=== PATIENT | female | born 2000 | race Hispanic/Latino ===

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

== ENCOUNTER → 2023-04-01 | Emergency (ER) | payer SELFPAY ==
--- OUTSIDE RECORDS SUMMARY | 2023-04-01 12:27 | XMS REPORT | Continuity of Care Document ---
Author Name Unknown Address [address] [place] [address] [facility] thconnect Address [address] [place] [address] Care Team Providers Care Comber Tender Name Role Phone BROOKE VIRAMONTES Primary Care Physician Unava ilBROOKE Elizabeth Attending Clinician ILAN Moore Attending Clinician Unavail able [facility], [facility] Attending Clinician Unava Ilan Parrish Attending Clinician + MÓNICA KAMARA Attending Clinician Unavailable MÓNICA KAMARA Attending Clinician Unavailable Mónica Kamara MD Attending Clinician [phone] KANWAL PANG Attending Clinician Unavailable Abril Contreras MD Attending Clinician [phone] Alphonso Tinoco MD Attending Clinician [phone] Trey Funk MD Attending Clinician [phone] Brooke Viramontes CNM Attending Clinician [phone] Doctor Unassigned, Burr Attending Clinician U kim West RN, Ambreen Perea Attending Clinician UnavailJOHN Greenwood Attending Clinician Unav ailadela Ultrasound, Brianahal Attending Clinician Unavailgita Cowan MD, John Son Attending Clinician + Lab, [facility] Attending Clinician Unavailable Brad Parson MD Attending Clinician [phone] BRAD PARSON Attending Clinician Belia MUIR, Parvin Vogel Attending Clinician [phone] PARVIN DUENAS Attending Clinician Unavailab CHIP Barboza Attending Clinician Chip Juarez MD Attending Clinician [phone] Amaury Crump DO Attending Clinician [phone] STEVE GRADY Attending Clinician Unavailraman Grady STERILE PROCESS COORDINATOR, Steve Perez Attending Clinician [phone] Caleb Ajith PECK Attending Clinician + Provider, [facility] Temp Attending Clinician Nahomy vailable LORRIE LUJAN Attending Clinician Sulma Cross, Yqd-Vdqqn-Mb/High Attending Clinician Unav ailable Tracey Lorrie PECK Attending Clinician [phone] MÓNICA KAMARA Admitting Clinician Unavailable Mónica Kamara MD Admitting Clinician [phone] BRAD PARSON Admitting Clinician CHIP Juarez Admitting Clinician Chip Juarez MD Admitting Clinician [phone] Payers Payer Name Policy Type Policy Number Effective Date Expirati on Date Source [place] [employer] [id number] 2022 00:00:00 [place] [id number] 2020 00:00:00 Problems Condition Name Condition Details Condition Category Status Onset Date Resolution Date Last Treatment Date Treating Clinician Comments Source 39 weeks gestation of 39 weeks gestation of Disease Active 2022-02 00:00: 00 [facility] Insufficie nt care Insufficie nt care Disease Active 2022-02 00:00: 00 [facility] Declines flu vaccine Declines flu vaccine Disease Active 2022-02 00:00: 00 [facility] Tubal ligation status Tubal ligation status Disease Active 2023-0 8-15 00:00: 00 [facility] Pain on movement of skeletal muscle Pain on movement of skeletal muscle Disease Active 0 8-05 00:00: 00 [facility] Pain of round ligament during Pain of round ligament during Disease Active 0 6-23 00:00: 00 [facility] Headache in Headache in Disease Active 0 6-23 00:00: 00 [facility] Overweight (BMI 25.0-29.9) Overweight (BMI 25.0-29.9) Disease Active 0 5-24 00:00: 00 [facility] care and examinatio n of lactating mother care and examinatio n of lactating mother Disease Active 0 2-16 00:00: 00 [facility] (spontaneo us vaginal delivery) (spontaneo us vaginal delivery) Disease Active 0 1-27 00:00: 00 [facility] Single live Single live Disease Active 0 1-27 00:00: 00 [facility] Rubella non-immune status, antepartum Rubella non-immune status, antepartum Disease Active 0 1-27 00:00: 00 [facility] Maternal varicella, non-immune Maternal varicella, non-immune Disease Active 0 1-27 00:00: 00 [facility] 38 weeks gestation of 38 weeks gestation of Disease Active 0 1-25 00:00: 00 [facility] COVID COVID Disease Active 0 1-20 00:00: 00 [facility] High risk teen in third trimester High risk teen in third trimester Disease Active 0 1-20 00:00: 00 [facility] Obesity (BMI 30-39.9) Obesity (BMI 30-39.9) Disease Active 0 1-20 00:00: 00 [facility] Obesity affecting in third trimester Obesity affecting in third trimester Disease Active 0 1-03 00:00: 00 [facility] Anemia of mother in , antepartum Anemia of mother in , antepartum Disease Active 2020-02 00:00: 00 [facility] Anemia of mother in , antepartum Anemia of mother in , antepartum Disease Active 2020-02 00:00: 00 [facility] Multiparit y Multiparit y Disease Active 8-18 00:00: 00 [facility] High-risk in first trimester High-risk in first trimester Disease Active 7 00:00: 00 [facility] H/O pre-eclamp aaron in prior , currently , second trimester H/O pre-eclamp aaron in prior , currently , second trimester Disease Active 09-07 00:00: 00 [facility] Palpable mass of breast in patient Palpable mass of breast in patient Disease Active 09-07 00:00: 00 [facility] Supervisio n of high-risk with insufficie nt care in third trimester Supervisio n of high-risk with insufficie nt care in third trimester Disease Active 2017-02 00:00: 00 [facility] High risk teen in first trimester High risk teen in first trimester Problem Active [facility] Allergies, Adverse Reactions, Alerts Allergy Name Allergy Type Status Severity Reaction(s) Onset Date Inactive Date Treating Clinician Comments Source NO KNOWN ALLERGIE S Drug Class Active [facility] Social History Social Habit Start Date Stop Date Quantity Comments Source ASSERTION 2022-04-25 00:00:00 [facility] Alcohol intake 2023-01-21 00:00:00 2023-01-21 00:00:00 Current non-drinker of alcohol (finding) [facility] Tobacco use and exposure 2023-01-13 00:00:00 2023-01-13 00:00:00 Smokeless tobacco non-user [facility] Exposure to SARS-CoV-2 (event) 2022-07-07 00:00:00 2022-07-17 13:35:00 Not sure [facility] History of Social function 2022-07-17 00:00:00 2022-07-17 00:00:00 [facility] Sex Assigned At 2001 00:00:00 2000 00:00:00 [facility] Smoking Status Start Date Stop Date Source Never smoked tobacco [facility] Medications Ordered Medication Name Filled Medication Name Start Date Stop Date Current Medication? Ordering Clinician Indication Dosage Frequency Signature (SIG) Comments Components Source simethicone (GAS RELIEF (SIMETHICON E)) chewable tablet 160 mg 2022-02 15:00: 00 Yes 160mg 160 mg, Oral, PC+HS, First dose (after last modificati on) on Sat01/16/23 at 0900, Until Discontinu ed, Routine [facility] gabapentin (NEURONTIN) capsule 100 mg 2022-02 07:00: 00 Yes 100mg 100 mg, Oral, TID, First dose on Sat01/16/23 at 0100, Until Discontinu ed, Routine [facility] polyethylen e glycol 3350 powder 17 g 2022-02 07:00: 00 Yes 17g 17 g, Oral, DAILY, First dose on Sat01/16/23 at 0100, Until Discontinu ed, Routine [facility] [id number] fum-folic () 27 mg iron- 1 mg folic tablet 2022-02 00:00: 00 Yes [id number] 1{tbl} Take 1 tablet by mouth in the morning. [facility] docusate 100 mg capsule 2022-02 00:00: 00 Yes [id number] 200mg Take 2 capsules by mouth once daily as needed for Constipati on. [facility] ferrous sulfate 325 mg (65 mg iron) tablet 2022-02 00:00: 00 Yes [id number] 325mg Take 1 tablet by mouth every other day. [facility] ibuprofen 600 mg tablet 2022-02 00:00: 00 Yes [id number] 600mg Take 1 tablet by mouth every 6 (six) hours as needed (Pain). Take with food or milk. [facility] HYDROcodone -acetaminop hen 5-325 mg tablet 2022-02 00:00: 00 Yes [id number] 1{tbl} Take 1 tablet by mouth every 6 (six) hours as needed (Pain scale above 4). Do not exceed 3 grams of acetaminop hen in 24 hours. Indication s: acute pain [facility] gabapentin 100 mg capsule 2022-02 00:00: 00 Yes [id number] 100mg Take 1 capsule by mouth in the morning and 1 capsule at noon and 1 capsule in the evening. [facility] [id number] fum-folic () 27 mg iron- 1 mg folic tablet 2022-02 00:00: 00 Yes [id number] 1{tbl} Take 1 tablet by mouth in the morning. [facility] docusate 100 mg capsule 2022-02 00:00: 00 Yes [id number] 200mg Take 2 capsules by mouth once daily as needed for Constipati on. [facility] ferrous sulfate 325 mg (65 mg iron) tablet 2022-02 00:00: 00 Yes [id number] 325mg Take 1 tablet by mouth every other day. [facility] ibuprofen 600 mg tablet 2022-02 00:00: 00 Yes [id number] 600mg Take 1 tablet by mouth every 6 (six) hours as needed (Pain). Take with food or milk. [facility] HYDROcodone -acetaminop hen 5-325 mg tablet 2022-02 00:00: 00 Yes [id number] 1{tbl} Take 1 tablet by mouth every 6 (six) hours as needed (Pain scale above 4). Do not exceed 3 grams of acetaminop hen in 24 hours. Indication s: acute pain [facility] gabapentin 100 mg capsule 2022-02 00:00: 00 Yes [id number] 100mg Take 1 capsule by mouth in the morning and 1 capsule at noon and 1 capsule in the evening. [facility] foLIC acid (FOLATE) tablet 1 mg 2022-02 15:00: 00 Yes 1mg 1 mg, Oral, DAILY, First dose on Sat01/15/23 at 0900, Until Discontinu ed, Routine [facility] ferrous sulfate tablet 325 mg 2022-02 15:00: 00 Yes 325mg 325 mg, Oral, DAILY, First dose on Sat01/15/23 at 0900, Until Discontinu ed, Routine [facility] foLIC acid (FOLATE) tablet 1 mg 2022-02 15:00: 00 Yes 1mg 1 mg, Oral, DAILY, First dose on Sat01/15/23 at 0900, Until Discontinu ed, Routine [facility] ferrous sulfate tablet 325 mg 2022-02 15:00: 00 Yes 325mg 325 mg, Oral, DAILY, First dose on Sat01/15/23 at 0900, Until Discontinu ed, Routine [facility] rho(D) immune globulin (RHOGAM) syringe 300 mcg 2022-02 22:21: 24 Yes 300ug 300 mcg, Intramuscu lar, ONCE, For 1 dose, Conditiona l, Routine [facility] rho(D) immune globulin (RHOGAM) syringe 300 mcg 2022-02 22:21: 24 Yes 300ug 300 mcg, Intramuscu lar, ONCE, For 1 dose, Conditiona l, Routine [facility] HYDROcodone -acetaminop hen (NORCO 5) 5-325 mg tablet 2 tablet 2022-02 22:21: 12 Yes 2{tbl} 2 tablet, Oral, Q6HPRN, Starting on Sat01/14/23 at 1621, Until Discontinu ed, Routine, Pain (scale 7-10), Alternate with Ibuprofen [facility] HYDROcodone -acetaminop hen (NORCO 5) 5-325 mg tablet 1 tablet 2022-02 22:21: 12 Yes 1{tbl} 1 tablet, Oral, Q6HPRN, Starting on Sat01/14/23 at 1621, Until Discontinu ed, Routine, Pain (scale 4-6), Alternate with Ibuprofen [facility] ibuprofen (IBU) tablet 600 mg 2022-02 22:21: 12 Yes 600mg 600 mg, Oral, Q6HPRN, Starting on Sat01/14/23 at 1621, Until Discontinu ed, Routine, Pain (scale 1-3) [facility] diphenhydrA MINE (BENADRYL) injection 25 mg 2022-02 22:21: 12 Yes 25mg 25 mg, Slow IV Push, Q6HPRN, Starting on Sat01/14/23 at 1621, Until Discontinu ed, Routine, Itching [facility] diphenhydrA MINE (BENADRYL) tablet 25 mg 2022-02 22:21: 12 Yes 25mg 25 mg, Oral, Q6HPRN, Starting on Sat01/14/23 at 1621, Until Discontinu ed, Routine, Sleep, Itching [facility] ondansetron (ZOFRAN (PF)) injection 4 mg 2022-02 22:21: 12 Yes 4mg 4 mg, Slow IV Push, Q8HPRN, Starting on Sat01/14/23 at 1621, Until Discontinu ed, Routine, Nausea and Vomiting (N/V) [facility] bisacodyL (DULCOLAX) suppository 10 mg 2022-02 22:21: 12 Yes 10mg 10 mg, Rectal, QDAILYPRN, Starting on Sat01/14/23 at 1621, Until Discontinu ed, Routine, Constipati on [facility] simethicone (GAS RELIEF (SIMETHICON E)) chewable tablet 160 mg 2022-02 22:21: 12 Yes 160mg 160 mg, Oral, PC+HSPRN, Starting on Sat01/14/23 at 1621, Until Discontinu ed, Routine, Gas [facility] docusate (COLACE) capsule 200 mg 2022-02 22:21: 12 Yes 200mg 200 mg, Oral, QDAILYPRN, Starting on Sat01/14/23 at 1621, Until Discontinu ed, Routine, Constipati on [facility] magnesium hydroxide (MILK OF MAGNESIA) 400 mg/5 mL suspension 30 mL 2022-02 22:21: 12 Yes 30mL 30 mL, Oral, QDAILYPRN, Starting on Sat01/14/23 at 1621, Until Discontinu ed, Routine, Constipati on [facility] HYDROcodone -acetaminop hen (NORCO 5) 5-325 mg tablet 2 tablet 2022-02 22:21: 12 Yes 2{tbl} 2 tablet, Oral, Q6HPRN, Starting on Sat01/14/23 at 1621, Until Discontinu ed, Routine, Pain (scale 7-10), Alternate with Ibuprofen [facility] HYDROcodone -acetaminop hen (NORCO 5) 5-325 mg tablet 1 tablet 2022-02 22:21: 12 Yes 1{tbl} 1 tablet, Oral, Q6HPRN, Starting on Sat01/14/23 at 1621, Until Discontinu ed, Routine, Pain (scale 4-6), Alternate with Ibuprofen [facility] ibuprofen (IBU) tablet 600 mg 2022-02 22:21: 12 Yes 600mg 600 mg, Oral, Q6HPRN, Starting on Sat01/14/23 at 1621, Until Discontinu ed, Routine, Pain (scale 1-3) [facility] diphenhydrA MINE (BENADRYL) injection 25 mg 2022-02 22:21: 12 Yes 25mg 25 mg, Slow IV Push, Q6HPRN, Starting on Sat01/14/23 at 1621, Until Discontinu ed, Routine, Itching [facility] diphenhydrA MINE (BENADRYL) tablet 25 mg 2022-02 22:21: 12 Yes 25mg 25 mg, Oral, Q6HPRN, Starting on Sat01/14/23 at 1621, Until Discontinu ed, Routine, Sleep, Itching [facility] ondansetron (ZOFRAN (PF)) injection 4 mg 2022-02 22:21: 12 Yes 4mg 4 mg, Slow IV Push, Q8HPRN, Starting on Sat01/14/23 at 1621, Until Discontinu ed, Routine, Nausea and Vomiting (N/V) [facility] bisacodyL (DULCOLAX) suppository 10 mg 2022-02 22:21: 12 Yes 10mg 10 mg, Rectal, QDAILYPRN, Starting on Sat01/14/23 at 1621, Until Discontinu ed, Routine, Constipati on [facility] docusate (COLACE) capsule 200 mg 2022-02 22:21: 12 Yes 200mg 200 mg, Oral, QDAILYPRN, Starting on Sat01/14/23 at 1621, Until Discontinu ed, Routine, Constipati on [facility] magnesium hydroxide (MILK OF MAGNESIA) 400 mg/5 mL suspension 30 mL 2022-02 22:21: 12 Yes 30mL 30 mL, Oral, QDAILYPRN, Starting on Sat01/14/23 at 1621, Until Discontinu ed, Routine, Constipati on [facility] simethicone (GAS RELIEF (SIMETHICON E)) chewable tablet 160 mg 2022-02 22:21: 12 01-16 06:47 :52 No 160mg 160 mg, Oral, PC+HSPRN, Starting on Sat01/14/23 at 1621, Until Sat01/16/23 at 0047, Routine, Gas [facility] lactated ringers IV infusion 1,000 mL 2022-02 22:21: 12 01-14 22:29 :00 No 1000mL at 125 mL/hr, 1,000 mL, IV Infusion, PRN, 1 dose, Starting on Sat01/14/23 at 1621, Until Sat01/14/23 at 1629, Routine [facility] diphenhydrA MINE (BENADRYL) injection 25 mg 2022-02 20:59: 34 01-16 00:55 :37 Yes 25mg 25 mg, Slow IV Push, Q4HPRN, Starting on Sat01/14/23 at 1459, Until Sat01/15/23 at 1855, Routine, Itching [facility] naloxone (NARCAN) injection 0.4 mg 2022-02 20:59: 00 01-17 00:14 :19 Yes .4mg 0.4 mg, Slow IV Push, PRN - SEE INSTRUCTIO NS, Starting on Sat01/14/23 at 1459, Until Sat01/16/23 at 1814, Routine, Analgesia Recovery [facility] naloxone (NARCAN) injection 0.4 mg 2022-02 20:59: 00 01-17 00:14 :19 Yes .4mg 0.4 mg, Slow IV Push, PRN - SEE INSTRUCTIO NS, Starting on Sat01/14/23 at 1459, Until Sat01/16/23 at 1814, Routine, Analgesia Recovery [facility] methylene blue injection 2022-02 20:48: 00 Yes PRN, Starting on Sat01/14/23 at 1448, Until Discontinu ed, Routine, Intra-op [facility] methylene blue injection 2022-02 20:48: 00 Yes PRN, Starting on Sat01/14/23 at 1448, Until Discontinu ed, Routine, Intra-op [facility] morpHINE PF (DURAMORPH- PF) injection 2022-02 19:56: 00 01-14 23:21 :14 No Epidural, ONCE INTRA PROCEDURE, Starting on Sat01/14/23 at 1356, Until Discontinu ed, Routine, Intra-op [facility] LR 1000 mL + oxytocin 20 units IV Solution 2022-02 19:45: 00 01-14 23:21 :14 No IV Infusion, CONTINUOUS PRN, Starting on Sat01/14/23 at 1345, Until Discontinu ed, NEERAJ, Intra-op [facility] FENTanyl PF (SUBLIMAZE (PF)) injection 2022-02 19:30: 00 01-14 23:21 :14 No Epidural, ONCE INTRA PROCEDURE, Starting on Sat01/14/23 at 1330, Until Discontinu ed, Routine, Intra-op [facility] ondansetron (ZOFRAN (PF)) injection 2022-02 19:29: 00 01-14 23:21 :14 No Slow IV Push, ONCE INTRA PROCEDURE, Starting on Sat01/14/23 at 1329, Until Discontinu ed, Routine, Intra-op [facility] lidocaine-e pinephrine (XYLOCAINE W/EPINEPHRI NE) 2 %-1:200,000 injection 2022-02 19:28: 00 01-14 23:21 :14 No Epidural, ONCE INTRA PROCEDURE, Starting on Sat01/14/23 at 1328, Until Discontinu ed, Routine, Intra-op [facility] PHENYLephri ne 1000 mcg/10 mL in 0.9% NaCl syringe 2022-02 19:25: 00 01-14 23:21 :14 No Slow IV Push, CONTINUOUS PRN, Starting on Sat01/14/23 at 1325, Until Discontinu ed, Routine, [facility] 20[facility]-02 19:18: 00 01-14 23:21 :14 No IV Infusion, CONTINUOUS PRN, Starting on Sat01/14/23 at 1318, Until Discontinu ed, Routine, Intra-op [facility] lactated ringers IV infusion 500 mL 2022-02 19:00: 00 01-14 19:11 :00 No 500mL at 999 mL/hr, 500 mL, Intravenou s, ONCE, 1 dose, On Sat01/14/23 at 1300, Routine [facility] ceFAZolin (ANCEF) 2,000 mg in NaCl 0.9% (NS) 100 mL MINI-BAG 2022-02 18:02: 25 01-14 22:21 :22 No 2000mg 2,000 mg, IV Piggyback, O.R. HOLDING ONCE, Starting on Sat01/14/23 at 1202, Until Sat01/14/23 at 1621, Administer over 30 Minutes, 100 mL
Reas on for Anti-Infec tive: Surgical Prophylaxi s
Surgi anthony Prophylaxi s: LENS EDGE GRINDER MACHINE
Duration of therapy: within 24 hours of surgery [facility] ondansetron (ZOFRAN (PF)) injection 4 mg 2022-02 15:45: 00 01-14 15:17 :00 No 4mg 4 mg, Slow IV Push, ONCE, On Sat01/14/23 at 0945, For 1 dose
Do ses of ondansetro n 16 mg and above need to be administer ed via IV piggyback. For Dose >=24mg ECG monitoring is advisable.
[facility] terbutaline (BRETHINE) injection 0.25 mg 2022-02 13:45: 00 01-14 12:54 :00 No .25mg 0.25 mg, Intravenou s, ONCE, 1 dose, On Sat01/14/23 at 0745, Routine [facility] amnioinfusi on IV infusion via GRAVITY 0.9 NaCL 1,000 mL 2022-02 12:45: 00 01-14 12:36 :00 No 1000mL at 750 mL/hr, Intrauteri ne, ONCE, 1 dose, On Sat01/14/23 at 0645, NEERAJ
In fuse via gravity 750 ml over 1 hour.&nbsp ; Once 750 mL has been infused, the infusion may be discontinu ed or decreased to 100 mL/hr until the liter is complete.& nbsp;&nbsp ;Notify Certified Registered Dental Assistant if uterine resting tone exceeds 25 mmHg at any time during the amnioinfus ion. Obst etrics (ARI) Aminoinfus ion Orders
[facility] lactated ringers IV infusion 500 mL 2022-02 11:15: 00 01-14 11:13 :34 No 500mL at 999 mL/hr, 500 mL, IV Infusion, ONCE, 1 dose, On Sat01/14/23 at 0515, Routine [facility] ropivacaine 0.2 % (NAROPIN (PF)) epidural infusion 2022-02 11:03: 00 01-14 23:21 :14 No Epidural, CONTINUOUS PRN, Starting on Sat01/14/23 at 0503, Until Discontinu ed, Routine, Intra-op [facility] lidocaine-e pinephrine (XYLOCAINE W/EPINEPHRI NE) 1.5 %-1:200,000 injection 2022-02 11:00: 00 01-14 23:21 :14 No Intraderma l, ONCE INTRA PROCEDURE, Starting on Sat01/14/23 at 0500, Until Discontinu ed, Routine, Intra-op [facility] morpHINE (4 mg/mL) injection 4 mg 2022-02 09:30: 00 01-14 09:15 :00 No 4mg 4 mg, Slow IV Push, ONCE, 1 dose, On Sat01/14/23 at 0330, Routine [facility] oxytocin (PITOCIN) 30 units in NS 500 mL IV infusion 2022-02 05:01: 12 01-14 22:21 :22 No 2mU/min at 2-40 mL/hr, IV Infusion, TITRATE, Starting on Sat01/13/23 at 2301, Until Sat01/14/23 at 1621, NEERAJ [facility] sodium citrate-cit nestor acid (BICITRA) 500-334 mg/5 mL solution 30 mL 2022-02 05:00: 02 01-14 19:11 :00 No 30mL 30 mL, Oral, PRE-PROCED URE ONCE, 1 dose, Starting on Sat01/13/23 at 2300, Until Discontinu ed, Routine, Surgery/Pr ocedure [facility] D5W-LR IV infusion 1,000 mL 2022-02 05:00: 02 01-14 22:21 :22 No 1000mL at 1-125 mL/hr, IV Infusion, TITRATE, Starting on Sat01/13/23 at 2300, Until Sat01/14/23 at 1621, Routine [facility] fluconazole (DIFLUCAN) 150 mg tablet 10-26 00:00: 00 Yes [id number] Take 1 tablet today and 2nd tablet in 7 days [facility] fluconazole (DIFLUCAN) 150 mg tablet 10-26 00:00: 00 12-05 00:00 :00 No [id number] Take 1 tablet today and 2nd tablet in 7 days [facility] fluconazole (DIFLUCAN) 150 mg tablet 10-26 00:00: 00 12-05 00:00 :00 No [id number] Take 1 tablet today and 2nd tablet in 7 days [facility] metroNIDAZO LE 500 mg tablet 10-26 00:00: 00 11-03 04:59 :00 No [id number] 500mg Take 1 tablet by mouth in the morning and 1 tablet in the evening. Do all this for 7 days. [facility] Iron Fum & P-FA-Vit B & C No.9 (INTEGRA PLUS) 125 mg iron- 1 mg Cap 2022-0 8-16 00:00: 00 Yes [id number] 1{capsu le} Take 1 capsule by mouth in the morning. [facility] Iron Fum & P-FA-Vit B & C No.9 (INTEGRA PLUS) 125 mg iron- 1 mg Cap 2022-0 8-16 00:00: 00 Yes [id number] 1{capsu le} Take 1 capsule by mouth in the morning. [facility] Iron Fum & P-FA-Vit B & C No.9 (INTEGRA PLUS) 125 mg iron- 1 mg Cap 2022-0 8-16 00:00: 00 Yes [id number] 1{capsu le} Take 1 capsule by mouth in the morning. [facility] Iron Fum & P-FA-Vit B & C No.9 (INTEGRA PLUS) 125 mg iron- 1 mg Cap 2022-0 8-16 00:00: 00 Yes [id number] 1{capsu le} Take 1 capsule by mouth in the morning. [facility] Iron Fum & P-FA-Vit B & C No.9 (INTEGRA PLUS) 125 mg iron- 1 mg Cap 3-0 8-16 00:00: 00 Yes [id number] 1{capsu le} Take 1 capsule by mouth in the morning. [facility] Iron Fum & P-FA-Vit B & C No.9 (INTEGRA PLUS) 125 mg iron- 1 mg Cap 3-0 8-16 00:00: 00 Yes [id number] 1{capsu le} Take 1 capsule by mouth in the morning. [facility] Iron Fum & P-FA-Vit B & C No.9 (INTEGRA PLUS) 125 mg iron- 1 mg Cap 2023-0 8-16 00:00: 00 Yes [id number] 1{capsu le} Take 1 capsule by mouth in the morning. [facility] Iron Fum & P-FA-Vit B & C No.9 (INTEGRA PLUS) 125 mg iron- 1 mg Cap 3-0 8-16 00:00: 00 Yes [id number] 1{capsu le} Take 1 capsule by mouth in the morning. [facility] Iron Fum & P-FA-Vit B & C No.9 (INTEGRA PLUS) 125 mg iron- 1 mg Cap 3-0 8-16 00:00: 00 Yes [id number] 1{capsu le} Take 1 capsule by mouth in the morning. [facility] Iron Fum & P-FA-Vit B & C No.9 (INTEGRA PLUS) 125 mg iron- 1 mg Cap 3-0 8-16 00:00: 00 01-16 00:00 :00 No [id number] 1{capsu le} Take 1 capsule by mouth in the morning. [facility] cyclobenzap rine 5 mg tablet 2022-0 8-03 00:00: 00 10-05 04:59 :00 No [id number] 5mg Take 1 tablet by mouth 3 (three) times daily as needed for Muscle Spasms for up to 7 days. [facility] fluconazole (DIFLUCAN) 150 mg tablet 2022-0 7-17 00:00: 00 18 04:59 :00 No [id number] 150mg Take 1 tablet by mouth once now for 1 dose. [facility] aspirin 81 mg EC tablet 0 07-17 00:00: 00 Yes [id number] 9100 81mg Take 1 tablet by mouth in the morning. [facility] ech599-vujl fum-folic () 27 mg iron- 1 mg folic tablet 07-17 00:00: 00 Yes [id number] 1{tbl} Take 1 tablet by mouth in the morning. [facility] aspirin 81 mg EC tablet 2022-0 07-17 00:00: 00 Yes [id number] 9100 81mg Take 1 tablet by mouth in the morning. [facility] xaq261-eaci fum-folic () 27 mg iron- 1 mg folic tablet 0 07-17 00:00: 00 Yes [id number] 1{tbl} Take 1 tablet by mouth in the morning. [facility] aspirin 81 mg EC tablet 0 07-17 00:00: 00 Yes [id number] 9100 81mg Take 1 tablet by mouth in the morning. [facility] kls091-tstl fum-folic () 27 mg iron- 1 mg folic tablet 0 07-17 00:00: 00 Yes [id number] 1{tbl} Take 1 tablet by mouth in the morning. [facility] aspirin 81 mg EC tablet 07-17 00:00: 00 Yes [id number] 9100 81mg Take 1 tablet by mouth in the morning. [facility] [id number]-fkpq fum-folic () 27 mg iron- 1 mg folic tablet 07-17 00:00: 00 Yes [id number] 1{tbl} Take 1 tablet by mouth in the morning. [facility] aspirin 81 mg EC tablet 0 07-17 00:00: 00 Yes [id number] 9100 81mg Take 1 tablet by mouth in the morning. [facility] ked640-gvyf fum-folic () 27 mg iron- 1 mg folic tablet 0 07-17 00:00: 00 Yes [id number] 1{tbl} Take 1 tablet by mouth in the morning. [facility] aspirin 81 mg EC tablet 0 07-17 00:00: 00 Yes [id number] 9100 81mg Take 1 tablet by mouth in the morning. [facility] kls173-xseo fum-folic () 27 mg iron- 1 mg folic tablet 0 07-17 00:00: 00 Yes [id number] 1{tbl} Take 1 tablet by mouth in the morning. [facility] aspirin 81 mg EC tablet 2022-0 07-17 00:00: 00 Yes [id number] 9100 81mg Take 1 tablet by mouth in the morning. [facility] ual219-gulw fum-folic () 27 mg iron- 1 mg folic tablet 0 07-17 00:00: 00 Yes [id number] 1{tbl} Take 1 tablet by mouth in the morning. [facility] aspirin 81 mg EC tablet 0 07-17 00:00: 00 Yes [id number] 9100 81mg Take 1 tablet by mouth in the morning. [facility] qca843-iiqp fum-folic () 27 mg iron- 1 mg folic tablet 07-17 00:00: 00 Yes [id number] 1{tbl} Take 1 tablet by mouth in the morning. [facility] aspirin 81 mg EC tablet 07-17 00:00: 00 Yes [id number] 9100 81mg Take 1 tablet by mouth in the morning. [facility] nix029-szrv fum-folic () 27 mg iron- 1 mg folic tablet 07-17 00:00: 00 Yes [id number] 1{tbl} Take 1 tablet by mouth in the morning. [facility] aspirin 81 mg EC tablet 07-17 00:00: 00 Yes [id number] 9100 81mg Take 1 tablet by mouth in the morning. [facility] egb442-xxqa fum-folic () 27 mg iron- 1 mg folic tablet 07-17 00:00: 00 Yes [id number] 1{tbl} Take 1 tablet by mouth in the morning. [facility] aspirin 81 mg EC tablet 0 07-17 00:00: 00 Yes [id number] 9100 81mg Take 1 tablet by mouth in the morning. [facility] eza566-uglv fum-folic () 27 mg iron- 1 mg folic tablet 07-17 00:00: 00 Yes [id number] 1{tbl} Take 1 tablet by mouth in the morning. [facility] aspirin 81 mg EC tablet 2022-0 07-17 00:00: 00 Yes [id number] 9100 81mg Take 1 tablet by mouth in the morning. [facility] [id number]-xoji fum-folic () 27 mg iron- 1 mg folic tablet 07-17 00:00: 00 Yes [id number] 1{tbl} Take 1 tablet by mouth in the morning. [facility] aspirin 81 mg EC tablet 07-17 00:00: 00 Yes [id number] 9100 81mg Take 1 tablet by mouth in the morning. [facility] yhk582-bvqo fum-folic () 27 mg iron- 1 mg folic tablet 07-17 00:00: 00 Yes [id number] 1{tbl} Take 1 tablet by mouth in the morning. [facility] aspirin 81 mg EC tablet 07-17 00:00: 00 Yes [id number] 9100 81mg Take 1 tablet by mouth in the morning. [facility] ckb902-zmfr fum-folic () 27 mg iron- 1 mg folic tablet 07-17 00:00: 00 Yes [id number] 1{tbl} Take 1 tablet by mouth in the morning. [facility] aspirin 81 mg EC tablet 07-17 00:00: 00 Yes [id number] 9100 81mg Take 1 tablet by mouth in the morning. [facility] rth072-qojy fum-folic () 27 mg iron- 1 mg folic tablet 07-17 00:00: 00 Yes [id number] 1{tbl} Take 1 tablet by mouth in the morning. [facility] aspirin 81 mg EC tablet 07-17 00:00: 00 Yes [id number] 9100 81mg Take 1 tablet by mouth in the morning. [facility] ios341-anqm fum-folic () 27 mg iron- 1 mg folic tablet 07-17 00:00: 00 Yes [id number] 1{tbl} Take 1 tablet by mouth in the morning. [facility] aspirin 81 mg EC tablet 2022-0 07-17 00:00: 00 Yes [id number] 9100 81mg Take 1 tablet by mouth in the morning. [facility] gvk041-wssy fum-folic () 27 mg iron- 1 mg folic tablet 07-17 00:00: 00 Yes [id number] 1{tbl} Take 1 tablet by mouth in the morning. [facility] aspirin 81 mg EC tablet 07-17 00:00: 00 Yes [id number] 9100 81mg Take 1 tablet by mouth in the morning. [facility] szf639-gfvt fum-folic () 27 mg iron- 1 mg folic tablet 07-17 00:00: 00 Yes [id number] 1{tbl} Take 1 tablet by mouth in the morning. [facility] aspirin 81 mg EC tablet 07-17 00:00: 00 Yes [id number] 9100 81mg Take 1 tablet by mouth in the morning. [facility] blr232-jtoz fum-folic () 27 mg iron- 1 mg folic tablet 07-17 00:00: 00 Yes [id number] 1{tbl} Take 1 tablet by mouth in the morning. [facility] aspirin 81 mg EC tablet 07-17 00:00: 00 01-16 00:00 :00 No [id number] 9100 81mg Take 1 tablet by mouth in the morning. [facility] mcd483-odoa fum-folic () 27 mg iron- 1 mg folic tablet 07-17 00:00: 00 01-16 00:00 :00 No [id number] 1{tbl} Take 1 tablet by mouth in the morning. [facility] ehy165-ffxx fum-folic () 27 mg iron- 1 mg Tab 03-23 00:00: 00 Yes [id number] 1{tbl} Take 1 tablet by mouth daily. [facility] docusate calcium 240 mg capsule 03-23 00:00: 00 Yes [id number] 240mg Take 1 capsule by mouth once daily as needed for Constipati on. [facility] ferrous sulfate 325 mg (65 mg iron) tablet 03-23 00:00: 00 Yes [id number] 325mg Take 1 tablet by mouth 2 (two) times daily. [facility] ibuprofen 600 mg tablet 03-23 00:00: 00 Yes [id number] 600mg Take 1 tablet by mouth every 6 (six) hours as needed (Pain). Take with food or milk. [facility] tdz564-dbsq fum-folic () 27 mg iron- 1 mg Tab 03-23 00:00: 00 Yes [id number] 1{tbl} Take 1 tablet by mouth daily. [facility] docusate calcium 240 mg capsule 03-23 00:00: 00 Yes [id number] 240mg Take 1 capsule by mouth once daily as needed for Constipati on. [facility] ferrous sulfate 325 mg (65 mg iron) tablet 03-23 00:00: 00 Yes [id number] 325mg Take 1 tablet by mouth 2 (two) times daily. [facility] ibuprofen 600 mg tablet 03-23 00:00: 00 Yes [id number] 600mg Take 1 tablet by mouth every 6 (six) hours as needed (Pain). Take with food or milk. [facility] [id number]-eydt fum-folic () 27 mg iron- 1 mg Tab 03-23 00:00: 00 Yes [id number] 1{tbl} Take 1 tablet by mouth daily. [facility] docusate calcium 240 mg capsule 03-23 00:00: 00 Yes [id number] 240mg Take 1 capsule by mouth once daily as needed for Constipati on. [facility] ferrous sulfate 325 mg (65 mg iron) tablet 03-23 00:00: 00 Yes [id number] 325mg Take 1 tablet by mouth 2 (two) times daily. [facility] ibuprofen 600 mg tablet 03-23 00:00: 00 Yes [id number] 600mg Take 1 tablet by mouth every 6 (six) hours as needed (Pain). Take with food or milk. [facility] jgu108-nhnk fum-folic () 27 mg iron- 1 mg Tab 03-23 00:00: 07-17 00:00 :00 No [id number] 1{tbl} Take 1 tablet by mouth daily. [facility] docusate calcium 240 mg capsule 03-23 00:00: 00 07-17 00:00 :00 No [id number] 240mg Take 1 capsule by mouth once daily as needed for Constipati on. [facility] ferrous sulfate 325 mg (65 mg iron) tablet 03-23 00:00: 00 07-17 00:00 :00 No [id number] 325mg Take 1 tablet by mouth 2 (two) times daily. [facility] ibuprofen 600 mg tablet 03-23 00:00: 00 07-17 00:00 :00 No [id number] 600mg Take 1 tablet by mouth every 6 (six) hours as needed (Pain). Take with food or milk. [facility] Macrobid Macrobid 11-12 00:00: 00 Yes Bharat Heredia 1 capsule with food [facility] Immunizations Ordered Immunization Name Filled Immunization Name Date Status Comments Source TDAP 2022-10-24 00:00:00 Completed [facility] TDAP 2022-10-24 00:00:00 Completed [facility] Varicella (varivax)(chicken pox) 2021-03-23 00:00:00 Completed [facility] MMR 2021-03-23 00:00:00 Completed [facility] Varicella (varivax)(chicken pox) 2021-03-23 00:00:00 Completed [facility] MMR 2021-03-23 00:00:00 Completed [facility] Varicella (varivax)(chicken pox) 2021-03-23 00:00:00 Completed [facility] MMR 2021-03-23 00:00:00 Completed [facility] Varicella (varivax)(chicken pox) 2021-03-23 00:00:00 Completed [facility] MMR 2021-03-23 00:00:00 Completed [facility] Varicella (varivax)(chicken pox) 2021-03-23 00:00:00 Completed [facility] 2021-03-23 00:00:00 Completed [facility] Varicella (varivax)(chicken pox) 2021-03-23 00:00:00 Completed [facility] 2021-03-23 00:00:00 Completed [facility] Varicella (varivax)(chicken pox) 2021-03-23 00:00:00 Completed [facility] 2021-03-23 00:00:00 Completed [facility] Varicella (varivax)(chicken pox) 2021-03-23 00:00:00 Completed [facility] 2021-03-23 00:00:00 Completed [facility] Varicella (varivax)(chicken pox) 2021-03-23 00:00:00 Completed [facility] 2021-03-23 00:00:00 Completed [facility] Varicella (varivax)(chicken pox) 2021-03-23 00:00:00 Completed [facility] 2021-03-23 00:00:00 Completed [facility] Varicella (varivax)(chicken pox) 2021-03-23 00:00:00 Completed [facility] 2021-03-23 00:00:00 Completed [facility] Varicella (varivax)(chicken pox) 2021-03-23 00:00:00 Completed [facility] 2021-03-23 00:00:00 Completed [facility] Varicella (varivax)(chicken pox) 2021-03-23 00:00:00 Completed [facility] 2021-03-23 00:00:00 Completed [facility] Varicella (varivax)(chicken pox) 2021-03-23 00:00:00 Completed [facility] 2021-03-23 00:00:00 Completed [facility] Varicella (varivax)(chicken pox) 2021-03-23 00:00:00 Completed [facility] 2021-03-23 00:00:00 Completed [facility] Varicella (varivax)(chicken pox) 2021-03-23 00:00:00 Completed [facility] 2021-03-23 00:00:00 Completed [facility] TDAP 2021-01-05 00:00:00 Completed [facility] TDAP 2021-01-05 00:00:00 Completed [facility] TDAP 2021-01-05 00:00:00 Completed [facility] TDAP 2021-01-05 00:00:00 Completed [facility] TDAP 2021-01-05 00:00:00 Completed [facility] TDAP 2021-01-05 00:00:00 Completed [facility] TDAP 2021-01-05 00:00:00 Completed [facility] TDAP 2021-01-05 00:00:00 Completed [facility] TDAP 2021-01-05 00:00:00 Completed [facility] TDAP 2021-01-05 00:00:00 Completed [facility] TDAP 2021-01-05 00:00:00 Completed [facility] TDAP 2021-01-05 00:00:00 Completed [facility] TDAP 2021-01-05 00:00:00 Completed [facility] TDAP 2021-01-05 00:00:00 Completed [facility] TDAP 2021-01-05 00:00:00 Completed [facility] TDAP 2021-01-05 00:00:00 Completed [facility] TDAP 2018-03-06 00:00:00 Completed [facility] TDAP 2018-03-06 00:00:00 Completed [facility] TDAP 2018-03-06 00:00:00 Completed [facility] TDAP 2018-03-06 00:00:00 Completed [facility] TDAP 2018-03-06 00:00:00 Completed [facility] TDAP 2018-03-06 00:00:00 Completed [facility] TDAP 2018-03-06 00:00:00 Completed [facility] TDAP 2018-03-06 00:00:00 Completed [facility] TDAP 2018-03-06 00:00:00 Completed [facility] TDAP 2018-03-06 00:00:00 Completed [facility] TDAP 2018-03-06 00:00:00 Completed [facility] TDAP 2018-03-06 00:00:00 Completed [facility] TDAP 2018-03-06 00:00:00 Completed [facility] TDAP 2018-03-06 00:00:00 Completed [facility] TDAP 2018-03-06 00:00:00 Completed [facility] TDAP 2018-03-06 00:00:00 Completed [facility] Influenza Virus Vaccine Quad .5 mL IM 6+ MO 2018-01-20 00:00:00 Completed [facility] Influenza Virus Vaccine Quad .5 mL IM 6+ MO 2018-01-20 00:00:00 Completed [facility] Influenza Virus Vaccine Quad .5 mL IM 6+ MO 2018-01-20 00:00:00 Completed [facility] Influenza Virus Vaccine Quad .5 mL IM 6+ MO 2018-01-20 00:00:00 Completed [facility] Influenza Virus Vaccine Quad .5 mL IM 6+ MO 2018-01-20 00:00:00 Completed [facility] Influenza Virus Vaccine Quad .5 mL IM 6+ MO 2018-01-20 00:00:00 Completed [facility] Influenza Virus Vaccine Quad .5 mL IM 6+ MO 2018-01-20 00:00:00 Completed [facility] Influenza Virus Vaccine Quad .5 mL IM 6+ MO 2018-01-20 00:00:00 Completed [facility] Influenza Virus Vaccine Quad .5 mL IM 6+ MO (FLUZONE/FLULAVAL/FL UARIX) 2018-01-20 00:00:00 Completed [facility] Influenza Virus Vaccine Quad .5 mL IM 6+ MO 2018-01-20 00:00:00 Completed [facility] Influenza Virus Vaccine Quad .5 mL IM 6+ MO 2018-01-20 00:00:00 Completed [facility] Influenza Virus Vaccine Quad .5 mL IM 6+ MO 2018-01-20 00:00:00 Completed [facility] Influenza Virus Vaccine Quad .5 mL IM 6+ MO 2018-01-20 00:00:00 Completed [facility] Influenza Virus Vaccine Quad .5 mL IM 6+ MO 2018-01-20 00:00:00 Completed [facility] Influenza Virus Vaccine Quad .5 mL IM 6+ MO 2018-01-20 00:00:00 Completed [facility] Influenza Virus Vaccine Quad .5 mL IM 6+ MO 2018-01-20 00:00:00 Completed [facility] HPV9 2016-10-04 00:00:00 Completed [facility] HPV9 2016-10-04 00:00:00 Completed [facility] HPV9 2016-10-04 00:00:00 Completed [facility] HPV9 2016-10-04 00:00:00 Completed [facility] HPV9 2016-10-04 00:00:00 Completed [facility] HPV9 2016-10-04 00:00:00 Completed [facility] HPV9 2016-10-04 00:00:00 Completed [facility] HPV9 2016-10-04 00:00:00 Completed [facility] HPV9 2016-10-04 00:00:00 Completed [facility] HPV9 2016-10-04 00:00:00 Completed [facility] HPV9 2016-10-04 00:00:00 Completed [facility] HPV9 2016-10-04 00:00:00 Completed [facility] HPV9 2016-10-04 00:00:00 Completed [facility] HPV9 2016-10-04 00:00:00 Completed [facility] HPV9 2016-10-04 00:00:00 Completed [facility] HPV9 2016-10-04 00:00:00 Completed [facility] TDAP 2014-10-14 00:00:00 Completed [facility] HPV9 2014-10-14 00:00:00 Completed [facility] Meningococcal Polysaccharide (groups A, C, Y and W-135) conjugate vaccine (MCV4P) 2014-10-14 00:00:00 Completed [facility] TDAP 2014-10-14 00:00:00 Completed [facility] HPV9 2014-10-14 00:00:00 Completed [facility] Meningococcal Polysaccharide (groups A, C, Y and W-135) conjugate vaccine (MCV4P) 2014-10-14 00:00:00 Completed [facility] TDAP 2014-10-14 00:00:00 Completed [facility] HPV9 2014-10-14 00:00:00 Completed [facility] Meningococcal Polysaccharide (groups A, C, Y and W-135) conjugate vaccine (MCV4P) 2014-10-14 00:00:00 Completed [facility] TDAP 2014-10-14 00:00:00 Completed [facility] HPV9 2014-10-14 00:00:00 Completed [facility] Meningococcal Polysaccharide (groups A, C, Y and W-135) conjugate vaccine (MCV4P) 2014-10-14 00:00:00 Completed [facility] TDAP 2014-10-14 00:00:00 Completed [facility] HPV9 2014-10-14 00:00:00 Completed [facility] Meningococcal Polysaccharide (groups A, C, Y and W-135) conjugate vaccine (MCV4P) 2014-10-14 00:00:00 Completed [facility] TDAP 2014-10-14 00:00:00 Completed [facility] HPV9 2014-10-14 00:00:00 Completed [facility] Meningococcal Polysaccharide (groups A, C, Y and W-135) conjugate vaccine (MCV4P) 2014-10-14 00:00:00 Completed [facility] TDAP 2014-10-14 00:00:00 Completed [facility] HPV9 2014-10-14 00:00:00 Completed [facility] Meningococcal Polysaccharide (groups A, C, Y and W-135) conjugate vaccine (MCV4P) 2014-10-14 00:00:00 Completed [facility] TDAP 2014-10-14 00:00:00 Completed [facility] HPV9 2014-10-14 00:00:00 Completed [facility] Meningococcal Polysaccharide (groups A, C, Y and W-135) conjugate vaccine (MCV4P) 2014-10-14 00:00:00 Completed [facility] TDAP 2014-10-14 00:00:00 Completed [facility] HPV9 2014-10-14 00:00:00 Completed [facility] Meningococcal Polysaccharide (groups A, C, Y and W-135) conjugate vaccine (MCV4P) 2014-10-14 00:00:00 Completed [facility] TDAP 2014-10-14 00:00:00 Completed [facility] HPV9 2014-10-14 00:00:00 Completed [facility] HPV9 2014-10-14 00:00:00 Completed [facility] HPV9 2014-10-14 00:00:00 Completed [facility] HPV9 2014-10-14 00:00:00 Completed [facility] Meningococcal Polysaccharide (groups A, C, Y and W-135) conjugate vaccine (MCV4P) 2014-10-14 00:00:00 Completed [facility] TDAP 2014-10-14 00:00:00 Completed [facility] HPV9 2014-10-14 00:00:00 Completed [facility] Meningococcal Polysaccharide (groups A, C, Y and W-135) conjugate vaccine (MCV4P) 2014-10-14 00:00:00 Completed [facility] TDAP 2014-10-14 00:00:00 Completed [facility] HPV9 2014-10-14 00:00:00 Completed [facility] Meningococcal Polysaccharide (groups A, C, Y and W-135) conjugate vaccine (MCV4P) 2014-10-14 00:00:00 Completed [facility] TDAP 2014-10-14 00:00:00 Completed [facility] HPV9 2014-10-14 00:00:00 Completed [facility] Meningococcal Polysaccharide (groups A, C, Y and W-135) conjugate vaccine (MCV4P) 2014-10-14 00:00:00 Completed [facility] Influenza Virus Vaccine Nasal 2010-01-10 00:00:00 Completed [facility] Influenza Virus Vaccine Nasal 2010-01-10 00:00:00 Completed [facility] Influenza Virus Vaccine Nasal 2010-01-10 00:00:00 Completed [facility] Influenza Virus Vaccine Nasal 2010-01-10 00:00:00 Completed [facility] Influenza Virus Vaccine Nasal 2010-01-10 00:00:00 Completed [facility] Influenza Virus Vaccine Nasal 2010-01-10 00:00:00 Completed [facility] Influenza Virus Vaccine Nasal 2010-01-10 00:00:00 Completed [facility] Influenza Virus Vaccine Nasal 2010-01-10 00:00:00 Completed [facility] Influenza Virus Vaccine Nasal 2010-01-10 00:00:00 Completed [facility] Influenza Virus Vaccine Nasal 2010-01-10 00:00:00 Completed [facility] Influenza Virus Vaccine Nasal 2010-01-10 00:00:00 Completed [facility] Influenza Virus Vaccine Nasal 2010-01-10 00:00:00 Completed [facility] Influenza Virus Vaccine Nasal 2010-01-10 00:00:00 Completed [facility] Influenza Virus Vaccine - Whole 2008-12-21 00:00:00 Completed [facility] Influenza Virus Vaccine - Whole 2008-12-21 00:00:00 Completed [facility] Influenza Virus Vaccine - Whole 2008-12-21 00:00:00 Completed [facility] Influenza Virus Vaccine - Whole 2008-12-21 00:00:00 Completed [facility] Influenza Virus Vaccine - Whole 2008-12-21 00:00:00 Completed [facility] Influenza Virus Vaccine - Whole 2008-12-21 00:00:00 Completed [facility] Influenza Virus Vaccine - Whole 2008-12-21 00:00:00 Completed [facility] Influenza Virus Vaccine - Whole 2008-12-21 00:00:00 Completed [facility] Influenza Virus Vaccine - Whole 2008-12-21 00:00:00 Completed [facility] Influenza Virus Vaccine - Whole 2008-12-21 00:00:00 Completed [facility] Influenza Virus Vaccine - Whole 2008-12-21 00:00:00 Completed [facility] Influenza Virus Vaccine - Whole 2008-12-21 00:00:00 Completed [facility] Influenza Virus Vaccine - Whole 2008-12-21 00:00:00 Completed [facility] Flu Trivalent 2008-03-29 00:00:00 Completed [facility] Flu Trivalent 2008-03-29 00:00:00 Completed [facility] Flu Trivalent 2008-03-29 00:00:00 Completed [facility] Flu Trivalent 2008-03-29 00:00:00 Completed [facility] Flu Trivalent 2008-03-29 00:00:00 Completed [facility] Flu Trivalent 2008-03-29 00:00:00 Completed [facility] Flu Trivalent 2008-03-29 00:00:00 Completed [facility] Flu Trivalent 2008-03-29 00:00:00 Completed [facility] Flu Trivalent 2008-03-29 00:00:00 Completed [facility] Flu Trivalent 2008-03-29 00:00:00 Completed [facility] Flu Trivalent 2008-03-29 00:00:00 Completed [facility] Flu Trivalent 2008-03-29 00:00:00 Completed [facility] Flu Trivalent 2008-03-29 00:00:00 Completed [facility] Varicella (varivax)(chicken pox) 2006-07-01 00:00:00 Completed [facility] HEPATITIS A 2006-07-01 00:00:00 Completed [facility] Varicella (varivax)(chicken pox) 2006-07-01 00:00:00 Completed [facility] HEPATITIS A 2006-07-01 00:00:00 Completed [facility] Varicella (varivax)(chicken pox) 2006-07-01 00:00:00 Completed [facility] HEPATITIS A 2006-07-01 00:00:00 Completed [facility] Varicella (varivax)(chicken pox) 2006-07-01 00:00:00 Completed [facility] HEPATITIS A 2006-07-01 00:00:00 Completed [facility] Varicella (varivax)(chicken pox) 2006-07-01 00:00:00 Completed [facility] HEPATITIS A 2006-07-01 00:00:00 Completed [facility] Varicella (varivax)(chicken pox) 2006-07-01 00:00:00 Completed [facility] HEPATITIS A 2006-07-01 00:00:00 Completed [facility] Varicella (varivax)(chicken pox) 2006-07-01 00:00:00 Completed [facility] HEPATITIS A 2006-07-01 00:00:00 Completed [facility] Varicella (varivax)(chicken pox) 2006-07-01 00:00:00 Completed [facility] HEPATITIS A 2006-07-01 00:00:00 Completed [facility] Varicella (varivax)(chicken pox) 2006-07-01 00:00:00 Completed [facility] HEPATITIS A 2006-07-01 00:00:00 Completed [facility] Varicella (varivax)(chicken pox) 2006-07-01 00:00:00 Completed [facility] HEPATITIS A 2006-07-01 00:00:00 Completed [facility] Varicella (varivax)(chicken pox) 2006-07-01 00:00:00 Completed [facility] HEPATITIS A 2006-07-01 00:00:00 Completed [facility] Varicella (varivax)(chicken pox) 2006-07-01 00:00:00 Completed [facility] HEPATITIS A 2006-07-01 00:00:00 Completed [facility] Varicella (varivax)(chicken pox) 2006-07-01 00:00:00 Completed [facility] HEPATITIS A 2006-07-01 00:00:00 Completed [facility] IPV 2005-12-05 00:00:00 Completed [facility] DTaP, Unspecified Formulation 2005-12-05 00:00:00 Completed [facility] HEPATITIS A 2005-12-05 00:00:00 Completed [facility] MMR 2005-12-05 00:00:00 Completed [facility] IPV 2005-12-05 00:00:00 Completed [facility] DTaP, Unspecified Formulation 2005-12-05 00:00:00 Completed [facility] HEPATITIS A 2005-12-05 00:00:00 Completed [facility] MMR 2005-12-05 00:00:00 Completed [facility] IPV 2005-12-05 00:00:00 Completed [facility] DTaP, Unspecified Formulation 2005-12-05 00:00:00 Completed [facility] HEPATITIS A 2005-12-05 00:00:00 Completed [facility] MMR 2005-12-05 00:00:00 Completed [facility] IPV 2005-12-05 00:00:00 Completed [facility] DTaP, Unspecified Formulation 2005-12-05 00:00:00 Completed [facility] HEPATITIS A 2005-12-05 00:00:00 Completed [facility] MMR 2005-12-05 00:00:00 Completed [facility] IPV 2005-12-05 00:00:00 Completed [facility] DTaP, Unspecified Formulation 2005-12-05 00:00:00 Completed [facility] HEPATITIS A 2005-12-05 00:00:00 Completed [facility] MMR 2005-12-05 00:00:00 Completed [facility] IPV 2005-12-05 00:00:00 Completed [facility] DTaP, Unspecified Formulation 2005-12-05 00:00:00 Completed [facility] HEPATITIS A 2005-12-05 00:00:00 Completed [facility] MMR 2005-12-05 00:00:00 Completed [facility] IPV 2005-12-05 00:00:00 Completed [facility] DTaP, Unspecified Formulation 2005-12-05 00:00:00 Completed [facility] HEPATITIS A 2005-12-05 00:00:00 Completed [facility] MMR 2005-12-05 00:00:00 Completed [facility] IPV 2005-12-05 00:00:00 Completed [facility] DTaP, Unspecified Formulation 2005-12-05 00:00:00 Completed [facility] HEPATITIS A 2005-12-05 00:00:00 Completed [facility] MMR 2005-12-05 00:00:00 Completed [facility] IPV 2005-12-05 00:00:00 Completed [facility] DTaP, Unspecified Formulation 2005-12-05 00:00:00 Completed [facility] HEPATITIS A 2005-12-05 00:00:00 Completed [facility] MMR 2005-12-05 00:00:00 Completed [facility] IPV 2005-12-05 00:00:00 Completed [facility] DTaP, Unspecified Formulation 2005-12-05 00:00:00 Completed [facility] HEPATITIS A 2005-12-05 00:00:00 Completed [facility] MMR 2005-12-05 00:00:00 Completed [facility] IPV 2005-12-05 00:00:00 Completed [facility] DTaP, Unspecified Formulation 2005-12-05 00:00:00 Completed [facility] HEPATITIS A 2005-12-05 00:00:00 Completed [facility] MMR 2005-12-05 00:00:00 Completed [facility] IPV 2005-12-05 00:00:00 Completed [facility] DTaP, Unspecified Formulation 2005-12-05 00:00:00 Completed [facility] HEPATITIS A 2005-12-05 00:00:00 Completed [facility] MMR 2005-12-05 00:00:00 Completed [facility] IPV 2005-12-05 00:00:00 Completed [facility] DTaP, Unspecified Formulation 2005-12-05 00:00:00 Completed [facility] HEPATITIS A 2005-12-05 00:00:00 Completed [facility] MMR 2005-12-05 00:00:00 Completed [facility] Pneumococcal 7 Conjugate, PCV7 (Prevnar7) 2003-03-22 00:00:00 Completed [facility] Pneumococcal 7 Conjugate, PCV7 (Prevnar7) 2003-03-22 00:00:00 Completed [facility] Pneumococcal 7 Conjugate, PCV7 (Prevnar7) 2003-03-22 00:00:00 Completed [facility] Pneumococcal 7 Conjugate, PCV7 (Prevnar7) 2003-03-22 00:00:00 Completed [facility] Pneumococcal 7 Conjugate, PCV7 (Prevnar7) 2003-03-22 00:00:00 Completed [facility] Pneumococcal 7 Conjugate, PCV7 (Prevnar7) 2003-03-22 00:00:00 Completed [facility] Pneumococcal 7 Conjugate, PCV7 (Prevnar7) 2003-03-22 00:00:00 Completed [facility] Pneumococcal 7 Conjugate, PCV7 (Prevnar7) 2003-03-22 00:00:00 Completed [facility] Pneumococcal 7 Conjugate, PCV7 (Prevnar7) 2003-03-22 00:00:00 Completed [facility] Pneumococcal 7 Conjugate, PCV7 (Prevnar7) 2003-03-22 00:00:00 Completed [facility] Pneumococcal 7 Conjugate, PCV7 (Prevnar7) 2003-03-22 00:00:00 Completed [facility] Pneumococcal 7 Conjugate, PCV7 (Prevnar7) 2003-03-22 00:00:00 Completed [facility] Pneumococcal 7 Conjugate, PCV7 (Prevnar7) 2003-03-22 00:00:00 Completed [facility] Pneumococcal 7 Conjugate, PCV7 (Prevnar7) 2002-11-10 00:00:00 Completed [facility] DTaP, Unspecified Formulation 2002-11-10 00:00:00 Completed [facility] HIB 4 Dose Schedule 2002-11-10 00:00:00 Completed [facility] Pneumococcal 7 Conjugate, PCV7 (Prevnar7) 2002-11-10 00:00:00 Completed [facility] DTaP, Unspecified Formulation 2002-11-10 00:00:00 Completed [facility] HIB 4 Dose Schedule 2002-11-10 00:00:00 Completed [facility] Pneumococcal 7 Conjugate, PCV7 (Prevnar7) 2002-11-10 00:00:00 Completed [facility] DTaP, Unspecified Formulation 2002-11-10 00:00:00 Completed [facility] HIB 4 Dose Schedule 2002-11-10 00:00:00 Completed [facility] Pneumococcal 7 Conjugate, PCV7 (Prevnar7) 2002-11-10 00:00:00 Completed [facility] DTaP, Unspecified Formulation 2002-11-10 00:00:00 Completed [facility] HIB 4 Dose Schedule 2002-11-10 00:00:00 Completed [facility] Pneumococcal 7 Conjugate, PCV7 (Prevnar7) 2002-11-10 00:00:00 Completed [facility] DTaP, Unspecified Formulation 2002-11-10 00:00:00 Completed [facility] HIB 4 Dose Schedule 2002-11-10 00:00:00 Completed [facility] Pneumococcal 7 Conjugate, PCV7 (Prevnar7) 2002-11-10 00:00:00 Completed [facility] DTaP, Unspecified Formulation 2002-11-10 00:00:00 Completed [facility] HIB 4 Dose Schedule 2002-11-10 00:00:00 Completed [facility] Pneumococcal 7 Conjugate, PCV7 (Prevnar7) 2002-11-10 00:00:00 Completed [facility] DTaP, Unspecified Formulation 2002-11-10 00:00:00 Completed [facility] HIB 4 Dose Schedule 2002-11-10 00:00:00 Completed [facility] Pneumococcal 7 Conjugate, PCV7 (Prevnar7) 2002-11-10 00:00:00 Completed [facility] DTaP, Unspecified Formulation 2002-11-10 00:00:00 Completed [facility] HIB 4 Dose Schedule 2002-11-10 00:00:00 Completed [facility] Pneumococcal 7 Conjugate, PCV7 (Prevnar7) 2002-11-10 00:00:00 Completed [facility] DTaP, Unspecified Formulation 2002-11-10 00:00:00 Completed [facility] HIB 4 Dose Schedule 2002-11-10 00:00:00 Completed [facility] Pneumococcal 7 Conjugate, PCV7 (Prevnar7) 2002-11-10 00:00:00 Completed [facility] DTaP, Unspecified Formulation 2002-11-10 00:00:00 Completed [facility] HIB 4 Dose Schedule 2002-11-10 00:00:00 Completed [facility] Pneumococcal 7 Conjugate, PCV7 (Prevnar7) 2002-11-10 00:00:00 Completed [facility] DTaP, Unspecified Formulation 2002-11-10 00:00:00 Completed [facility] HIB 4 Dose Schedule 2002-11-10 00:00:00 Completed [facility] Pneumococcal 7 Conjugate, PCV7 (Prevnar7) 2002-11-10 00:00:00 Completed [facility] DTaP, Unspecified Formulation 2002-11-10 00:00:00 Completed [facility] HIB 4 Dose Schedule 2002-11-10 00:00:00 Completed [facility] Pneumococcal 7 Conjugate, PCV7 (Prevnar7) 2002-11-10 00:00:00 Completed [facility] DTaP, Unspecified Formulation 2002-11-10 00:00:00 Completed [facility] HIB 4 Dose Schedule 2002-11-10 00:00:00 Completed [facility] IPV 2002-09-03 00:00:00 Completed [facility] IPV 2002-09-03 00:00:00 Completed [facility] IPV 2002-09-03 00:00:00 Completed [facility] IPV 2002-09-03 00:00:00 Completed [facility] IPV 2002-09-03 00:00:00 Completed [facility] IPV 2002-09-03 00:00:00 Completed [facility] IPV 2002-09-03 00:00:00 Completed [facility] IPV 2002-09-03 00:00:00 Completed [facility] IPV 2002-09-03 00:00:00 Completed [facility] IPV 2002-09-03 00:00:00 Completed [facility] IPV 2002-09-03 00:00:00 Completed [facility] IPV 2002-09-03 00:00:00 Completed [facility] IPV 2002-09-03 00:00:00 Completed [facility] IPV 2002-08-03 00:00:00 Completed [facility] Varicella (varivax)(chicken pox) 2002-08-03 00:00:00 Completed [facility] MMR 2002-08-03 00:00:00 Completed [facility] IPV 2002-08-03 00:00:00 Completed [facility] Varicella (varivax)(chicken pox) 2002-08-03 00:00:00 Completed [facility] MMR 2002-08-03 00:00:00 Completed [facility] IPV 2002-08-03 00:00:00 Completed [facility] Varicella (varivax)(chicken pox) 2002-08-03 00:00:00 Completed [facility] MMR 2002-08-03 00:00:00 Completed [facility] IPV 2002-08-03 00:00:00 Completed [facility] Varicella (varivax)(chicken pox) 2002-08-03 00:00:00 Completed [facility] MMR 2002-08-03 00:00:00 Completed [facility] IPV 2002-08-03 00:00:00 Completed [facility] Varicella (varivax)(chicken pox) 2002-08-03 00:00:00 Completed [facility] MMR 2002-08-03 00:00:00 Completed [facility] IPV 2002-08-03 00:00:00 Completed [facility] Varicella (varivax)(chicken pox) 2002-08-03 00:00:00 Completed [facility] MMR 2002-08-03 00:00:00 Completed [facility] IPV 2002-08-03 00:00:00 Completed [facility] Varicella (varivax)(chicken pox) 2002-08-03 00:00:00 Completed [facility] MMR 2002-08-03 00:00:00 Completed [facility] IPV 2002-08-03 00:00:00 Completed [facility] Varicella (varivax)(chicken pox) 2002-08-03 00:00:00 Completed [facility] MMR 2002-08-03 00:00:00 Completed [facility] IPV 2002-08-03 00:00:00 Completed [facility] Varicella (varivax)(chicken pox) 2002-08-03 00:00:00 Completed [facility] MMR 2002-08-03 00:00:00 Completed [facility] IPV 2002-08-03 00:00:00 Completed [facility] Varicella (varivax)(chicken pox) 2002-08-03 00:00:00 Completed [facility] MMR 2002-08-03 00:00:00 Completed [facility] IPV 2002-08-03 00:00:00 Completed [facility] Varicella (varivax)(chicken pox) 2002-08-03 00:00:00 Completed [facility] MMR 2002-08-03 00:00:00 Completed [facility] IPV 2002-08-03 00:00:00 Completed [facility] Varicella (varivax)(chicken pox) 2002-08-03 00:00:00 Completed [facility] MMR 2002-08-03 00:00:00 Completed [facility] IPV 2002-08-03 00:00:00 Completed [facility] Varicella (varivax)(chicken pox) 2002-08-03 00:00:00 Completed [facility] MMR 2002-08-03 00:00:00 Completed [facility] DTaP, Unspecified Formulation 2002-04-22 00:00:00 Completed [facility] HIB 4 Dose Schedule 2002-04-22 00:00:00 Completed [facility] DTaP, Unspecified Formulation 2002-04-22 00:00:00 Completed [facility] HIB 4 Dose Schedule 2002-04-22 00:00:00 Completed [facility] DTaP, Unspecified Formulation 2002-04-22 00:00:00 Completed [facility] HIB 4 Dose Schedule 2002-04-22 00:00:00 Completed [facility] DTaP, Unspecified Formulation 2002-04-22 00:00:00 Completed [facility] HIB 4 Dose Schedule 2002-04-22 00:00:00 Completed [facility] DTaP, Unspecified Formulation 2002-04-22 00:00:00 Completed [facility] HIB 4 Dose Schedule 2002-04-22 00:00:00 Completed [facility] DTaP, Unspecified Formulation 2002-04-22 00:00:00 Completed [facility] HIB 4 Dose Schedule 2002-04-22 00:00:00 Completed [facility] DTaP, Unspecified Formulation 2002-04-22 00:00:00 Completed [facility] HIB 4 Dose Schedule 2002-04-22 00:00:00 Completed [facility] DTaP, Unspecified Formulation 2002-04-22 00:00:00 Completed [facility] HIB 4 Dose Schedule 2002-04-22 00:00:00 Completed [facility] DTaP, Unspecified Formulation 2002-04-22 00:00:00 Completed [facility] HIB 4 Dose Schedule 2002-04-22 00:00:00 Completed [facility] DTaP, Unspecified Formulation 2002-04-22 00:00:00 Completed [facility] HIB 4 Dose Schedule 2002-04-22 00:00:00 Completed [facility] DTaP, Unspecified Formulation 2002-04-22 00:00:00 Completed [facility] HIB 4 Dose Schedule 2002-04-22 00:00:00 Completed [facility] DTaP, Unspecified Formulation 2002-04-22 00:00:00 Completed [facility] HIB 4 Dose Schedule 2002-04-22 00:00:00 Completed [facility] DTaP, Unspecified Formulation 2002-04-22 00:00:00 Completed [facility] HIB 4 Dose Schedule 2002-04-22 00:00:00 Completed [facility] DTaP, Unspecified Formulation 2001 00:00:00 Completed [facility] Hep B, Adol or Pedi Dosage 2001 00:00:00 Completed [facility] HIB 4 Dose Schedule 2001 00:00:00 Completed [facility] IPV 2001 00:00:00 Completed [facility] DTaP, Unspecified Formulation 2001 00:00:00 Completed [facility] Hep B, Adol or Pedi Dosage 2001 00:00:00 Completed [facility] HIB 4 Dose Schedule 2001 00:00:00 Completed [facility] IPV 2001 00:00:00 Completed [facility] DTaP, Unspecified Formulation 2001 00:00:00 Completed [facility] Hep B, Adol or Pedi Dosage 2001 00:00:00 Completed [facility] HIB 4 Dose Schedule 2001 00:00:00 Completed [facility] IPV 2001 00:00:00 Completed [facility] DTaP, Unspecified Formulation 2001 00:00:00 Completed [facility] Hep B, Adol or Pedi Dosage 2001 00:00:00 Completed [facility] HIB 4 Dose Schedule 2001 00:00:00 Completed [facility] IPV 2001 00:00:00 Completed [facility] DTaP, Unspecified Formulation 2001 00:00:00 Completed [facility] Hep B, Adol or Pedi Dosage 2001 00:00:00 Completed [facility] HIB 4 Dose Schedule 2001 00:00:00 Completed [facility] IPV 2001 00:00:00 Completed [facility] DTaP, Unspecified Formulation 2001 00:00:00 Completed [facility] Hep B, Adol or Pedi Dosage 2001 00:00:00 Completed [facility] HIB 4 Dose Schedule 2001 00:00:00 Completed [facility] IPV 2001 00:00:00 Completed [facility] DTaP, Unspecified Formulation 2001 00:00:00 Completed [facility] Hep B, Adol or Pedi Dosage 2001 00:00:00 Completed [facility] HIB 4 Dose Schedule 2001 00:00:00 Completed [facility] IPV 2001 00:00:00 Completed [facility] DTaP, Unspecified Formulation 2001 00:00:00 Completed [facility] Hep B, Adol or Pedi Dosage 2001 00:00:00 Completed [facility] HIB 4 Dose Schedule 2001 00:00:00 Completed [facility] IPV 2001 00:00:00 Completed [facility] DTaP, Unspecified Formulation 2001 00:00:00 Completed [facility] Hep B, Adol or Pedi Dosage 2001 00:00:00 Completed [facility] HIB 4 Dose Schedule 2001 00:00:00 Completed [facility] IPV 2001 00:00:00 Completed [facility] DTaP, Unspecified Formulation 2001 00:00:00 Completed [facility] Hep B, Adol or Pedi Dosage 2001 00:00:00 Completed [facility] HIB 4 Dose Schedule 2001 00:00:00 Completed [facility] IPV 2001 00:00:00 Completed [facility] DTaP, Unspecified Formulation 2001 00:00:00 Completed [facility] Hep B, Adol or Pedi Dosage 2001 00:00:00 Completed [facility] HIB 4 Dose Schedule 2001 00:00:00 Completed [facility] IPV 2001 00:00:00 Completed [facility] DTaP, Unspecified Formulation 2001 00:00:00 Completed [facility] Hep B, Adol or Pedi Dosage 2001 00:00:00 Completed [facility] HIB 4 Dose Schedule 2001 00:00:00 Completed [facility] IPV 2001 00:00:00 Completed [facility] DTaP, Unspecified Formulation 2001 00:00:00 Completed [facility] Hep B, Adol or Pedi Dosage 2001 00:00:00 Completed [facility] HIB 4 Dose Schedule 2001 00:00:00 Completed [facility] IPV 2001 00:00:00 Completed [facility] Hep B, Adol or Pedi Dosage 2001 00:00:00 Completed [facility] Hep B, Adol or Pedi Dosage 2001 00:00:00 Completed [facility] Hep B, Adol or Pedi Dosage 2001 00:00:00 Completed [facility] Hep B, Adol or Pedi Dosage 2001 00:00:00 Completed [facility] Hep B, Adol or Pedi Dosage 2001 00:00:00 Completed [facility] Hep B, Adol or Pedi Dosage 2001 00:00:00 Completed [facility] Hep B, Adol or Pedi Dosage 2001 00:00:00 Completed [facility] Hep B, Adol or Pedi Dosage 2001 00:00:00 Completed [facility] Hep B, Adol or Pedi Dosage 2001 00:00:00 Completed [facility] Hep B, Adol or Pedi Dosage 2001 00:00:00 Completed [facility] Hep B, Adol or Pedi Dosage 2001 00:00:00 Completed [facility] Hep B, Adol or Pedi Dosage 2001 00:00:00 Completed [facility] Hep B, Adol or Pedi Dosage 2001 00:00:00 Completed [facility] IPV 2001 00:00:00 Completed [facility] DTaP, Unspecified Formulation 2001 00:00:00 Completed [facility] HIB 4 Dose Schedule 2001 00:00:00 Completed [facility] IPV 2001 00:00:00 Completed [facility] DTaP, Unspecified Formulation 2001 00:00:00 Completed [facility] HIB 4 Dose Schedule 2001 00:00:00 Completed [facility] IPV 2001 00:00:00 Completed [facility] DTaP, Unspecified Formulation 2001 00:00:00 Completed [facility] HIB 4 Dose Schedule 2001 00:00:00 Completed [facility] IPV 2001 00:00:00 Completed [facility] DTaP, Unspecified Formulation 2001 00:00:00 Completed [facility] HIB 4 Dose Schedule 2001 00:00:00 Completed [facility] IPV 2001 00:00:00 Completed [facility] DTaP, Unspecified Formulation 2001 00:00:00 Completed [facility] HIB 4 Dose Schedule 2001 00:00:00 Completed [facility] IPV 2001 00:00:00 Completed [facility] DTaP, Unspecified Formulation 2001 00:00:00 Completed [facility] HIB 4 Dose Schedule 2001 00:00:00 Completed [facility] IPV 2001 00:00:00 Completed [facility] DTaP, Unspecified Formulation 2001 00:00:00 Completed [facility] HIB 4 Dose Schedule 2001 00:00:00 Completed [facility] IPV 2001 00:00:00 Completed [facility] DTaP, Unspecified Formulation 2001 00:00:00 Completed [facility] HIB 4 Dose Schedule 2001 00:00:00 Completed [facility] IPV 2001 00:00:00 Completed [facility] DTaP, Unspecified Formulation 2001 00:00:00 Completed [facility] HIB 4 Dose Schedule 2001 00:00:00 Completed [facility] IPV 2001 00:00:00 Completed [facility] DTaP, Unspecified Formulation 2001 00:00:00 Completed [facility] HIB 4 Dose Schedule 2001 00:00:00 Completed [facility] IPV 2001 00:00:00 Completed [facility] DTaP, Unspecified Formulation 2001 00:00:00 Completed [facility] HIB 4 Dose Schedule 2001 00:00:00 Completed [facility] IPV 2001 00:00:00 Completed [facility] DTaP, Unspecified Formulation 2001 00:00:00 Completed [facility] HIB 4 Dose Schedule 2001 00:00:00 Completed [facility] IPV 2001 00:00:00 Completed [facility] DTaP, Unspecified Formulation 2001 00:00:00 Completed [facility] HIB 4 Dose Schedule 2001 00:00:00 Completed [facility] Hep B, Adol or Pedi Dosage 2001 00:00:00 Completed [facility] Hep B, Adol or Pedi Dosage 2001 00:00:00 Completed [facility] Hep B, Adol or Pedi Dosage 2001 00:00:00 Completed [facility] Hep B, Adol or Pedi Dosage 2001 00:00:00 Completed [facility] Hep B, Adol or Pedi Dosage 2001 00:00:00 Completed [facility] Hep B, Adol or Pedi Dosage 2001 00:00:00 Completed [facility] Hep B, Adol or Pedi Dosage 2001 00:00:00 Completed [facility] Hep B, Adol or Pedi Dosage 2001 00:00:00 Completed [facility] Hep B, Adol or Pedi Dosage 2001 00:00:00 Completed [facility] Hep B, Adol or Pedi Dosage 2001 00:00:00 Completed [facility] Hep B, Adol or Pedi Dosage 2001 00:00:00 Completed [facility] Hep B, Adol or Pedi Dosage 2001 00:00:00 Completed [facility] Hep B, Adol or Pedi Dosage 2001 00:00:00 Completed [facility] Influenza Virus Vaccine Quad .5 mL IM 6+ MO (FLUZONE/FLULAVAL/FL UARIX) Unknown Completed [facility] TDAP Unknown Completed [facility] TDAP Unknown Completed [facility] Varicella (varivax)(chicken pox) Unknown Completed [facility] MMR Unknown Completed [facility] HPV9 Unknown Completed [facility] HPV9 Unknown Completed [facility] DTaP, Unspecified Formulation Unknown Completed [facility] DTaP, Unspecified Formulation Unknown Completed [facility] DTaP, Unspecified Formulation Unknown Completed [facility] DTaP, Unspecified Formulation Unknown Completed [facility] DTaP, Unspecified Formulation Unknown Completed [facility] Flu Trivalent Unknown Completed [facility] Influenza Virus Vaccine - Whole Unknown Completed [facility] Influenza Virus Vaccine Nasal Unknown Completed [facility] HEPATITIS A Unknown Completed [facility] HEPATITIS A Unknown Completed [facility] Hep B, Adol or Pedi Dosage Unknown Completed [facility] Hep B, Adol or Pedi Dosage Unknown Completed [facility] Hep B, Adol or Pedi Dosage Unknown Completed [facility] HIB 4 Dose Schedule Unknown Completed [facility] HIB 4 Dose Schedule Unknown Completed [facility] HIB 4 Dose Schedule Unknown Completed [facility] HIB 4 Dose Schedule Unknown Completed [facility] Meningococcal Polysaccharide (groups A, C, Y and W-135) conjugate vaccine (MCV4P) Unknown Completed [facility] MMR Unknown Completed [facility] MMR Unknown Completed [facility] Pneumococcal 7 Conjugate, PCV7 (Prevnar7) Unknown Completed [facility] Pneumococcal 7 Conjugate, PCV7 (Prevnar7) Unknown Completed [facility] IPV Unknown Completed [facility] IPV Unknown Completed [facility] IPV Unknown Completed [facility] IPV Unknown Completed [facility] IPV Unknown Completed [facility] TDAP Unknown Completed [facility] Varicella (varivax)(chicken pox) Unknown Completed [facility] Varicella (varivax)(chicken pox) Unknown Completed [facility] TDAP Unknown Completed [facility] Influenza Virus Vaccine Quad .5 mL IM 6+ MO (FLUZONE/FLULAVAL/FL UARIX) Unknown Completed [facility] TDAP Unknown Completed [facility] TDAP Unknown Completed [facility] Varicella (varivax)(chicken pox) Unknown Completed [facility] MMR Unknown Completed [facility] HPV9 Unknown Completed [facility] HPV9 Unknown Completed [facility] DTaP, Unspecified Formulation Unknown Completed [facility] DTaP, Unspecified Formulation Unknown Completed [facility] DTaP, Unspecified Formulation Unknown Completed [facility] DTaP, Unspecified Formulation Unknown Completed [facility] DTaP, Unspecified Formulation Unknown Completed [facility] Flu Trivalent Unknown Completed [facility] Influenza Virus Vaccine - Whole Unknown Completed [facility] Influenza Virus Vaccine Nasal Unknown Completed [facility] HEPATITIS A Unknown Completed [facility] HEPATITIS A Unknown Completed [facility] Hep B, Adol or Pedi Dosage Unknown Completed [facility] Hep B, Adol or Pedi Dosage Unknown Completed [facility] Hep B, Adol or Pedi Dosage Unknown Completed [facility] HIB 4 Dose Schedule Unknown Completed [facility] HIB 4 Dose Schedule Unknown Completed [facility] HIB 4 Dose Schedule Unknown Completed [facility] HIB 4 Dose Schedule Unknown Completed [facility] Meningococcal Polysaccharide (groups A, C, Y and W-135) conjugate vaccine (MCV4P) Unknown Completed [facility] MMR Unknown Completed [facility] MMR Unknown Completed [facility] Pneumococcal 7 Conjugate, PCV7 (Prevnar7) Unknown Completed [facility] Pneumococcal 7 Conjugate, PCV7 (Prevnar7) Unknown Completed [facility] IPV Unknown Completed [facility] IPV Unknown Completed [facility] IPV Unknown Completed [facility] IPV Unknown Completed [facility] IPV Unknown Completed [facility] TDAP Unknown Completed [facility] Varicella (varivax)(chicken pox) Unknown Completed [facility] Varicella (varivax)(chicken pox) Unknown Completed [facility] TDAP Unknown Completed [facility] Influenza Virus Vaccine Quad .5 mL IM 6+ MO (FLUZONE/FLULAVAL/FL UARIX) Unknown Completed [facility] TDAP Unknown Completed [facility] TDAP Unknown Completed [facility] Varicella (varivax)(chicken pox) Unknown Completed [facility] MMR Unknown Completed [facility] HPV9 Unknown Completed [facility] HPV9 Unknown Completed [facility] DTaP, Unspecified Formulation Unknown Completed [facility] DTaP, Unspecified Formulation Unknown Completed [facility] DTaP, Unspecified Formulation Unknown Completed [facility] DTaP, Unspecified Formulation Unknown Completed [facility] DTaP, Unspecified Formulation Unknown Completed [facility] Flu Trivalent Unknown Completed [facility] Influenza Virus Vaccine - Whole Unknown Completed [facility] Influenza Virus Vaccine Nasal Unknown Completed [facility] HEPATITIS A Unknown Completed [facility] HEPATITIS A Unknown Completed [facility] Hep B, Adol or Pedi Dosage Unknown Completed [facility] Hep B, Adol or Pedi Dosage Unknown Completed [facility] Hep B, Adol or Pedi Dosage Unknown Completed [facility] HIB 4 Dose Schedule Unknown Completed [facility] HIB 4 Dose Schedule Unknown Completed [facility] HIB 4 Dose Schedule Unknown Completed [facility] HIB 4 Dose Schedule Unknown Completed [facility] Meningococcal Polysaccharide (groups A, C, Y and W-135) conjugate vaccine (MCV4P) Unknown Completed [facility] MMR Unknown Completed [facility] MMR Unknown Completed [facility] Pneumococcal 7 Conjugate, PCV7 (Prevnar7) Unknown Completed [facility] Pneumococcal 7 Conjugate, PCV7 (Prevnar7) Unknown Completed [facility] IPV Unknown Completed [facility] IPV Unknown Completed [facility] IPV Unknown Completed [facility] IPV Unknown Completed [facility] IPV Unknown Completed [facility] TDAP Unknown Completed [facility] Varicella (varivax)(chicken pox) Unknown Completed [facility] Varicella (varivax)(chicken pox) Unknown Completed [facility] TDAP Unknown Completed [facility] Influenza Virus Vaccine Quad .5 mL IM 6+ MO (FLUZONE/FLULAVAL/FL UARIX) Unknown Completed [facility] TDAP Unknown Completed [facility] TDAP Unknown Completed [facility] Varicella (varivax)(chicken pox) Unknown Completed [facility] MMR Unknown Completed [facility] HPV9 Unknown Completed [facility] HPV9 Unknown Completed [facility] DTaP, Unspecified Formulation Unknown Completed [facility] DTaP, Unspecified Formulation Unknown Completed [facility] DTaP, Unspecified Formulation Unknown Completed [facility] DTaP, Unspecified Formulation Unknown Completed [facility] DTaP, Unspecified Formulation Unknown Completed [facility] Flu Trivalent Unknown Completed [facility] Influenza Virus Vaccine - Whole Unknown Completed [facility] Influenza Virus Vaccine Nasal Unknown Completed [facility] HEPATITIS A Unknown Completed [facility] HEPATITIS A Unknown Completed [facility] Hep B, Adol or Pedi Dosage Unknown Completed [facility] Hep B, Adol or Pedi Dosage Unknown Completed [facility] Hep B, Adol or Pedi Dosage Unknown Completed [facility] HIB 4 Dose Schedule Unknown Completed [facility] HIB 4 Dose Schedule Unknown Completed [facility] HIB 4 Dose Schedule Unknown Completed [facility] HIB 4 Dose Schedule Unknown Completed [facility] Meningococcal Polysaccharide (groups A, C, Y and W-135) conjugate vaccine (MCV4P) Unknown Completed [facility] MMR Unknown Completed [facility] MMR Unknown Completed [facility] Pneumococcal 7 Conjugate, PCV7 (Prevnar7) Unknown Completed [facility] Pneumococcal 7 Conjugate, PCV7 (Prevnar7) Unknown Completed [facility] IPV Unknown Completed [facility] IPV Unknown Completed [facility] IPV Unknown Completed [facility] IPV Unknown Completed [facility] IPV Unknown Completed [facility] TDAP Unknown Completed [facility] Varicella (varivax)(chicken pox) Unknown Completed [facility] Varicella (varivax)(chicken pox) Unknown Completed [facility] TDAP Unknown Completed [facility] Influenza Virus Vaccine Quad .5 mL IM 6+ MO (FLUZONE/FLULAVAL/FL UARIX) Unknown Completed [facility] TDAP Unknown Completed [facility] TDAP Unknown Completed [facility] Varicella (varivax)(chicken pox) Unknown Completed [facility] MMR Unknown Completed [facility] HPV9 Unknown Completed [facility] HPV9 Unknown Completed [facility] DTaP, Unspecified Formulation Unknown Completed [facility] DTaP, Unspecified Formulation Unknown Completed [facility] DTaP, Unspecified Formulation Unknown Completed [facility] DTaP, Unspecified Formulation Unknown Completed [facility] DTaP, Unspecified Formulation Unknown Completed [facility] Flu Trivalent Unknown Completed [facility] Influenza Virus Vaccine - Whole Unknown Completed [facility] Influenza Virus Vaccine Nasal Unknown Completed [facility] HEPATITIS A Unknown Completed [facility] HEPATITIS A Unknown Completed [facility] Hep B, Adol or Pedi Dosage Unknown Completed [facility] Hep B, Adol or Pedi Dosage Unknown Completed [facility] Hep B, Adol or Pedi Dosage Unknown Completed [facility] HIB 4 Dose Schedule Unknown Completed [facility] HIB 4 Dose Schedule Unknown Completed [facility] HIB 4 Dose Schedule Unknown Completed [facility] HIB 4 Dose Schedule Unknown Completed [facility] Meningococcal Polysaccharide (groups A, C, Y and W-135) conjugate vaccine (MCV4P) Unknown Completed [facility] MMR Unknown Completed [facility] MMR Unknown Completed [facility] Pneumococcal 7 Conjugate, PCV7 (Prevnar7) Unknown Completed [facility] Pneumococcal 7 Conjugate, PCV7 (Prevnar7) Unknown Completed [facility] IPV Unknown Completed [facility] IPV Unknown Completed [facility] IPV Unknown Completed [facility] IPV Unknown Completed [facility] IPV Unknown Completed [facility] TDAP Unknown Completed [facility] Varicella (varivax)(chicken pox) Unknown Completed [facility] Varicella (varivax)(chicken pox) Unknown Completed [facility] TDAP Unknown Completed [facility] Influenza Virus Vaccine Quad .5 mL IM 6+ MO (FLUZONE/FLULAVAL/FL UARIX) Unknown Completed [facility] TDAP Unknown Completed [facility] TDAP Unknown Completed [facility] Varicella (varivax)(chicken pox) Unknown Completed [facility] MMR Unknown Completed [facility] HPV9 Unknown Completed [facility] HPV9 Unknown Completed [facility] DTaP, Unspecified Formulation Unknown Completed [facility] DTaP, Unspecified Formulation Unknown Completed [facility] DTaP, Unspecified Formulation Unknown Completed [facility] DTaP, Unspecified Formulation Unknown Completed [facility] DTaP, Unspecified Formulation Unknown Completed [facility] Flu Trivalent Unknown Completed [facility] Influenza Virus Vaccine - Whole Unknown Completed [facility] Influenza Virus Vaccine Nasal Unknown Completed [facility] HEPATITIS A Unknown Completed [facility] HEPATITIS A Unknown Completed [facility] Hep B, Adol or Pedi Dosage Unknown Completed [facility] Hep B, Adol or Pedi Dosage Unknown Completed [facility] Hep B, Adol or Pedi Dosage Unknown Completed [facility] HIB 4 Dose Schedule Unknown Completed [facility] HIB 4 Dose Schedule Unknown Completed [facility] HIB 4 Dose Schedule Unknown Completed [facility] HIB 4 Dose Schedule Unknown Completed [facility] Meningococcal Polysaccharide (groups A, C, Y and W-135) conjugate vaccine (MCV4P) Unknown Completed [facility] MMR Unknown Completed [facility] MMR Unknown Completed [facility] Pneumococcal 7 Conjugate, PCV7 (Prevnar7) Unknown Completed [facility] Pneumococcal 7 Conjugate, PCV7 (Prevnar7) Unknown Completed [facility] IPV Unknown Completed [facility] IPV Unknown Completed [facility] IPV Unknown Completed [facility] IPV Unknown Completed [facility] IPV Unknown Completed [facility] TDAP Unknown Completed [facility] Varicella (varivax)(chicken pox) Unknown Completed [facility] Varicella (varivax)(chicken pox) Unknown Completed [facility] TDAP Unknown Completed [facility] Influenza Virus Vaccine Quad .5 mL IM 6+ MO (FLUZONE/FLULAVAL/FL UARIX) Unknown Completed [facility] TDAP Unknown Completed [facility] TDAP Unknown Completed [facility] Varicella (varivax)(chicken pox) Unknown Completed [facility] MMR Unknown Completed [facility] HPV9 Unknown Completed [facility] HPV9 Unknown Completed [facility] DTaP, Unspecified Formulation Unknown Completed [facility] DTaP, Unspecified Formulation Unknown Completed [facility] DTaP, Unspecified Formulation Unknown Completed [facility] DTaP, Unspecified Formulation Unknown Completed [facility] DTaP, Unspecified Formulation Unknown Completed [facility] Flu Trivalent Unknown Completed [facility] Influenza Virus Vaccine - Whole Unknown Completed [facility] Influenza Virus Vaccine Nasal Unknown Completed [facility] HEPATITIS A Unknown Completed [facility] HEPATITIS A Unknown Completed [facility] Hep B, Adol or Pedi Dosage Unknown Completed [facility] Hep B, Adol or Pedi Dosage Unknown Completed [facility] Hep B, Adol or Pedi Dosage Unknown Completed [facility] HIB 4 Dose Schedule Unknown Completed [facility] HIB 4 Dose Schedule Unknown Completed [facility] HIB 4 Dose Schedule Unknown Completed [facility] HIB 4 Dose Schedule Unknown Completed [facility] Meningococcal Polysaccharide (groups A, C, Y and W-135) conjugate vaccine (MCV4P) Unknown Completed [facility] MMR Unknown Completed [facility] MMR Unknown Completed [facility] Pneumococcal 7 Conjugate, PCV7 (Prevnar7) Unknown Completed [facility] Pneumococcal 7 Conjugate, PCV7 (Prevnar7) Unknown Completed [facility] IPV Unknown Completed [facility] IPV Unknown Completed [facility] IPV Unknown Completed [facility] IPV Unknown Completed [facility] IPV Unknown Completed [facility] TDAP Unknown Completed [facility] Varicella (varivax)(chicken pox) Unknown Completed [facility] Varicella (varivax)(chicken pox) Unknown Completed [facility] TDAP Unknown Completed [facility] Influenza Virus Vaccine Quad .5 mL IM 6+ MO (FLUZONE/FLULAVAL/FL UARIX) Unknown Completed [facility] TDAP Unknown Completed [facility] TDAP Unknown Completed [facility] Varicella (varivax)(chicken pox) Unknown Completed [facility] MMR Unknown Completed [facility] HPV9 Unknown Completed [facility] HPV9 Unknown Completed [facility] DTaP, Unspecified Formulation Unknown Completed [facility] DTaP, Unspecified Formulation Unknown Completed [facility] DTaP, Unspecified Formulation Unknown Completed [facility] DTaP, Unspecified Formulation Unknown Completed [facility] DTaP, Unspecified Formulation Unknown Completed [facility] Flu Trivalent Unknown Completed [facility] Influenza Virus Vaccine - Whole Unknown Completed [facility] Influenza Virus Vaccine Nasal Unknown Completed [facility] HEPATITIS A Unknown Completed [facility] HEPATITIS A Unknown Completed [facility] Hep B, Adol or Pedi Dosage Unknown Completed [facility] Hep B, Adol or Pedi Dosage Unknown Completed [facility] Hep B, Adol or Pedi Dosage Unknown Completed [facility] HIB 4 Dose Schedule Unknown Completed [facility] HIB 4 Dose Schedule Unknown Completed [facility] HIB 4 Dose Schedule Unknown Completed [facility] HIB 4 Dose Schedule Unknown Completed [facility] Meningococcal Polysaccharide (groups A, C, Y and W-135) conjugate vaccine (MCV4P) Unknown Completed [facility] MMR Unknown Completed [facility] MMR Unknown Completed [facility] Pneumococcal 7 Conjugate, PCV7 (Prevnar7) Unknown Completed [facility] Pneumococcal 7 Conjugate, PCV7 (Prevnar7) Unknown Completed [facility] IPV Unknown Completed [facility] IPV Unknown Completed [facility] IPV Unknown Completed [facility] IPV Unknown Completed [facility] IPV Unknown Completed [facility] TDAP Unknown Completed [facility] Varicella (varivax)(chicken pox) Unknown Completed [facility] Varicella (varivax)(chicken pox) Unknown Completed [facility] TDAP Unknown Completed [facility] Vital Signs Vital Name Observation Time Observation Value Comments S ource Systolic blood pressure 2023-01-21 20:01:00 126 mm[Hg] [facility] Diastolic blood pressure 2023-01-21 20:01:00 83 mm[Hg] [facility] Heart rate 2023-01-21 20:01:00 93 /min [facility] Body temperature 2023-01-21 19:59:00 36.28 Tess [facility] Respiratory rate 2023-01-21 19:59:00 18 /min [facility] Body height 2023-01-21 19:59:00 157.5 cm [facility] Body weight 2023-01-21 19:59:00 77.225 kg [facility] BMI 2023-01-21 19:59:00 31.14 kg/m2 [facility] Systolic blood pressure 2023-01-16 17:41:00 119 mm[Hg] [facility] Diastolic blood pressure 2023-01-16 17:41:00 74 mm[Hg] [facility] Heart rate 2023-01-16 17:41:00 80 /min [facility] Body temperature 2023-01-16 17:41:00 36.61 Tess [facility] Respiratory rate 2023-01-16 17:41:00 17 /min [facility] Oxygen saturation in Arterial blood by Pulse oximetry 2023-01-16 17:41:00 97 /min [facility] Body height 2023-01-14 03:33:00 157.5 cm [facility] Body weight 2023-01-14 03:33:00 81.647 kg [facility] BMI 2023-01-14 03:33:00 32.92 kg/m2 [facility] Systolic blood pressure 2023-01-14 22:11:00 93 mm[Hg] [facility] Diastolic blood pressure 2023-01-14 22:11:00 60 mm[Hg] [facility] Heart rate 2023-01-14 22:11:00 82 /min [facility] Body temperature 2023-01-14 22:11:00 38.06 Tess [facility] Respiratory rate 2023-01-14 22:11:00 17 /min [facility] Oxygen saturation in Arterial blood by Pulse oximetry 2023-01-14 22:11:00 97 /min [facility] Body height 2023-01-14 03:33:00 157.5 cm [facility] Body weight 2023-01-14 03:33:00 81.647 kg [facility] BMI 2023-01-14 03:33:00 32.92 kg/m2 [facility] Systolic blood pressure 2023-01-09 16:03:00 130 mm[Hg] [facility] Diastolic blood pressure 2023-01-09 16:03:00 85 mm[Hg] [facility] Heart rate 2023-01-09 16:03:00 72 /min [facility] Body temperature 2023-01-09 16:02:00 36.06 Tess [facility] Respiratory rate 2023-01-09 16:02:00 18 /min [facility] Body height 2023-01-09 16:02:00 157.5 cm [facility] Body weight 2023-01-09 16:02:00 81.336 kg [facility] BMI 2023-01-09 16:02:00 32.80 kg/m2 [facility] Systolic blood pressure 2023-01-03 21:36:00 123 mm[Hg] [facility] Diastolic blood pressure 2023-01-03 21:36:00 84 mm[Hg] [facility] Heart rate 2023-01-03 21:36:00 82 /min [facility] Body temperature 2023-01-03 21:36:00 35.78 Tess [facility] [facility] 2023-01-03 21:36:00 18 /min [facility] Body height 2023-01-03 21:36:00 157.5 cm [facility] Body weight 2023-01-03 21:36:00 80.854 [facility] BMI 2023-01-03 21:36:00 32.60 kg/m2 [facility] Systolic blood pressure 2022-12-05 19:20:00 131 mm[Hg] [facility] Diastolic blood pressure 2022-12-05 19:20:00 80 mm[Hg] [facility] Heart rate 2022-12-05 19:20:00 82 /min Unive [facility] Body temperature 2022-12-05 19:20:00 36.5 Tess [facility] Respiratory rate 2022-12-05 19:20:00 17 /min [facility] Body height 2022-12-05 19:20:00 157.5 cm [facility] Body weight 2022-12-05 19:20:00 78.608 kg [facility] BMI 2022-12-05 19:20:00 31.70 kg/m2 [facility] Systolic blood pressure 2022-10-24 19:35:00 122 mm[Hg] [facility] Diastolic blood pressure 2022-10-24 19:35:00 75 mm[Hg] [facility] Heart rate 2022-10-24 19:35:00 80 /min Unive [facility] Body temperature 2022-10-24 19:35:00 35.67 Tess [facility] Respiratory rate 2022-10-24 19:35:00 18 /min [facility] Body height 2022-10-24 19:35:00 157.5 cm [facility] Body weight 2022-10-24 19:35:00 74.027 kg [facility] BMI 2022-10-24 19:35:00 29.85 kg/m2 [facility] Systolic blood pressure 2022-10-09 18:04:00 121 mm[Hg] [facility] Diastolic blood pressure 2022-10-09 18:04:00 73 mm[Hg] [facility] Heart rate 2022-10-09 18:04:00 74 /min Unive [facility] Body temperature 2022-10-09 18:04:00 36.39 Tess [facility] Respiratory rate 2022-10-09 18:04:00 18 /min [facility] Body height 2022-10-09 18:04:00 157.5 cm [facility] Body weight 2022-10-09 18:04:00 71.782 kg [facility] BMI 2022-10-09 18:04:00 28.94 kg/m2 [facility] Systolic blood pressure 2022-09-27 18:42:00 135 mm[Hg] [facility] Diastolic blood pressure 2022-09-27 18:42:00 84 mm[Hg] [facility] Heart rate 2022-09-27 18:42:00 106 /min Unive [facility] Body temperature 2022-09-27 18:42:00 36.39 Tess [facility] Respiratory rate 2022-09-27 18:42:00 18 /min [facility] Body height 2022-09-27 18:42:00 157.5 cm [facility] Body weight 2022-09-27 18:42:00 70.761 kg [facility] BMI 2022-09-27 18:42:00 28.53 kg/m2 [facility] Systolic blood pressure 2022-09-10 20:52:00 117 mm[Hg] [facility] Diastolic blood pressure 2022-09-10 20:52:00 70 mm[Hg] [facility] Heart rate 2022-09-10 20:52:00 82 /min [facility] temperature 2022-09-10 20:52:00 36.39 Tess [facility] Respiratory rate 2022-09-10 20:52:00 18 /min [facility] Body height 2022-09-10 20:52:00 157.5 cm [facility] Body weight 2022-09-10 20:52:00 71.26 kg [facility] BMI 2022-09-10 20:52:00 28.73 kg/m2 [facility] Systolic blood pressure 2022-08-14 18:41:00 127 mm[Hg] [facility] Diastolic blood pressure 2022-08-14 18:41:00 78 mm[Hg] [facility] Heart rate 2022-08-14 18:41:00 73 /min [facility]ive [facility] Body temperature 2022-08-14 18:41:00 36.44 Tess [facility] Respiratory rate 2022-08-14 18:41:00 18 /min [facility] Body height 2022-08-14 18:41:[address] [facility] Body weight 2022-08-14 18:41:[address] [facility] BMI 2022-08-14 18:41:00 27.44 kg/m2 [facility] Systolic blood pressure 2022-07-17 18:35:00 124 mm[Hg] [facility] Diastolic blood pressure 2022-07-17 18:35:00 85 mm[Hg] [place] [facility] Heart rate 2022-07-17 18:35:00 79 /min [facility] Body temperature 2022-07-17 18:35:00 36.78 Tess [facility] Respiratory rate 2022-07-17 18:35:00 18 /min [facility] Body height 2022-07-17 18:35:00 157.5 cm [facility] Body weight 2022-07-17 18:35:00 68.04 kg [facility] BMI 2022-07-17 18:35:00 27.44 kg/m2 [facility] Procedures Procedure Date / Time Performed Performing Clinician Source CBC WITH DIFF 2023-01-15 21:55:00 Fatemeh Alcantar [facility] TRANSFUSE PACKED RBC 2023-01-15 14:35:00 Christ Michelle [facility] PREPARE PACKED RBC 2023-01-15 14:14:08 Christ Alcantar [facility] PREPARE PACKED RBC 2023-01-15 14:14:08 Christ Alcantar [facility] CBC WITH DIFF 2023-01-15 10:26:00 [facility] CBC WITH DIFF 2023-01-15 10:26:00 [facility] VENOUS CORD GAS 2023-01-14 19:52:[address] [facility] V[facility] CORD GAS 2023-01-14 19:52:00 Nati Tolentino [facility] SECTION 2023-01-14 19:08:00 [facility]23-[facility]-14 19:08:00 Abril Contreras Un [facility] LACTATE DEHYDROGENASE 2023-01-14 13:37:00 Cristin Tolentino [facility] LACTATE DEHYDROGENASE 2023-01-14 13:37:00 Cristin Tolentino [facility] CBC WITH DIFF 2023-01-14 12:25:00 Nati Tolentino [facility] URINALYSIS 2023-01-14 12:25:00 Nati Tolentino [facility] PROTEIN CREAT RATIO URINE RANDOM 2023-01-14 12:25:00 Nati Tolentino [facility] CBC WITH DIFF 2023-01-14 12:25:00 Nati Tolentino [facility] URINALYSIS 2023-01-14 12:25:00 Nati Tolentino [facility] PROTEIN CREAT RATIO URINE RANDOM 2023-01-14 12:25:00 Nati Tolentino [facility] CENTRAL NEURAXIAL BLOCK 2023-01-14 11:10:00 Chura Tra denis [facility] SGOT (ASPARTATE AMINO TRANSFER) 2023-01-14 05:30:00 Nati Tolentino [facility] CREATININE 2023-01-14 05:30:00 Nati Tolentino [facility] ALANINE AMINO TRANSFERASE(SGPT 2023-01-14 05:30:00 [facility] 2023-01-14 05:30:00 Nati Tolentino [facility] HEPATITIS B SURFACE ANTIGEN 2023-01-14 05:30:00 [facility] HB ABO GROUPING 2023-01-14 05:30:00 Nati Tolentino [facility] RHO (D) IMMUNE GLOBULIN 2023-01-14 05:30:00 Rachel Craig [facility] HIV 1/2 AG-AB WITH REFLEX 2023-01-14 05:30:00 [facility] SYPHILIS IGG/IGM 2023-01-14 05:30:00 Nati Tolentino [facility] SGOT (ASPARTATE AMINO TRANSFER) 2023-01-14 05:30:00 [facility] CREATININE 2023-01-14 05:30:00 Nati Tolentino [facility] ALANINE AMINO TRANSFERASE(SGPT 2023-01-14 05:30:00 Nati Tolentino [facility] URIC ACID 2023-01-14 05:30:00 Nati Tolentino [facility] HEPATITIS B SURFACE ANTIGEN 2023-01-14 05:30:00 Nati Tolentino [facility] HB ABO GROUPING 2023-01-14 05:30:00 Nati Tolentino [facility] RHO (D) IMMUNE GLOBULIN 2023-01-14 05:30:00 Rachel Craig [facility] HIV 1/2 AG-AB WITH REFLEX 2023-01-14 05:30:00 Nati Tolentino [facility] SYPHILIS IGG/IGM 2023-01-14 05:30:00 Nati Tolentino [facility] POCT URINALYSIS 2023-01-09 16:19:00 Brooke Viramontes [facility] POCT URINALYSIS 2022-12-05 00:00:00 Brooke Viramontes [facility] TDAP VACCINE, >11 YRS, IM 2022-10-24 19:54:38 Brooke Viramontes [facility] POCT URINALYSIS 2022-10-24 19:36:00 Brooke Viramontes [facility] STERILIZATION CONSENT FORM 2022-10-09 05:01:00 Doctor Unassigned, Burr [facility] POCT URINALYSIS 2022-09-10 21:02:00 Brooke Viramontes [facility] QUAD SCRN 2022-08-14 19:28:00 [facility] 2022-08-14 18:44:00 Brooke Viramontes [facility] GLUCOSE 1 HOUR POST PRANDIAL 2022-07-17 19:48:00 Brooke Viramontes [facility] COMP. METABOLIC PANEL (08982) 2022-07-17 19:48:00 Brooke Viramontes [facility] CBC WITH DIFF 2022-07-17 19:48:00 Brooke Viramontes [facility] HEPATITIS B SURFACE ANTIGEN 2022-07-17 19:48:00 Brooke Viramontes [facility] HB ABO GROUPING 2022-07-17 19:48:00 Brooke Viramontes [facility] HIV 1/2 AG-AB WITH REFLEX 2022-07-17 19:48:00 Brooke Viramontes [facility] PAP SMEAR-LIQUID BASED-CP 2022-07-17 19:48:00 Brooke Viramontes [facility] POCT URINALYSIS W/O SPECIFIC GRAVITY 2022-07-17 18:28:00 Brooke Viramontes [facility] POCT TEST 2022-07-17 18:27:00 Trinh Viramontes [facility] ASSIGNMENT OF BENEFITS 2022-07-17 18:00:05 Docto r Unassigned, Burr [facility] POCT GLUCOSE (AUTOMATED) 2021-07-07 18:46:00 Jaspreet Duenas [facility] Encounters Start Date/Time End Date/Time Encounter Type Admission Type Attending Clinicians Care Facility Care Department Encounter ID Source 2023-02-28 12:45:00 2023-02-28 12:45:00 Outpatient BROOKE CANCINO [facility] [id number] [facility] 2023-01-21 14:00:00 2023-01-21 14:22:31 Outpatient ILAN SOLIS [facility] [id number] [facility] 2023-01-21 14:00:00 2023-01-21 14:22:31 Nurse Visit Visit, Pedro-Rmchp Nurse Ilan Wright [facility] [employer] 1.2.840.114 350.1.13.10 4.2.7.2.686 [id number] [facility] 2023-01-13 21:10:00 2023-01-16 16:02:00 Inpatient P MÓNICA KAMARA SHANNON [facility] ARI [id number] [facility] 2023-01-13 21:10:00 2023-01-16 16:02:00 Hospital Encounter Mónica Kamara [facility] 1.2.840.114 350.1.13.10 4.2.7.2.686 [id number] [facility] 2023-01-14 14:00:00 2023-01-14 16:11:[address] [facility] 1.2.840.114 350.1.13.10 4.2.7.2.686 [id number] [facility] 2023-01-14 04:48:00 2023-01-14 14:51:00 Anesthesia Event Alphonso Tinoco Mohamed A [facility] 1.2840.114 350.1.13.10 4.2.7.2.686 [id number] [facility] 2023-01-10 15:15:00 2023-01-10 15:15:00 Outpatient BROOKE CANCINO [facility] [id number] [facility] 2023-01-09 10:00:00 2023-01-09 10:49:32 Outpatient BROOKE CANCINO [facility] [id number] [facility] 2023-01-09 10:00:00 2023-01-09 10:49:32 Routine Visit Brooke Viramontes [facility] 1.2840.114 350.1.13.10 4.2.7.2.686 [id number] [facility] 2023-01-03 15:30:00 2023-01-03 16:01:04 Outpatient BROOKE CANCINO [facility] [id number] [facility] 2023-01-03 15:30:00 2023-01-03 16:01:04 Routine Visit Brooke Viramontes [facility] [employer] [employer] ..840.114 350.1.13.10 4.2.7.2.686 [id number] 107 [id number] [facility] 2022-12-19 11:00:00 2022-12-19 11:00:00 Outpatient R [facility] [id number] [facility] 2022-12-05 14:15:00 2022-12-05 14:56:31 [facility] [id number] [facility] 2022-12-05 14:15:00 2022-12-05 14:56:31 [facility] ..840.114 350.1.13.10 4.2.7.2.686 [id number] 107 [id number] [facility] 2022-11-09 11:00:00 2022-11-09 11:00:00 Outpatient R BROOEK VIRAMONTES [facility] [id number] [facility] 2022-10-26 00:00:00 2022-10-26 00:00:00 Case Management [facility] [employer] ..840.114 350.1.13.10 4.2.7.2.686 [id number] [facility] 2022-10-24 14:15:00 2022-10-24 15:15:56 Outpatient R [facility] [id number] [facility] 2022-10-24 14:15:00 2022-10-24 15:15:56 [facility] [facility] 1..840.114 350.1.13.10 4.2.7.2.686 [id number] [facility] 2022-10-10 00:00:00 2022-10-10 00:00:00 Telephone AveryBrooke rivas [facility] [employer] [employer] 1.2840.114 350.1.13.10 4.2.7.2.686 [id number] [facility] 2022-10-09 12:45:00 2022-10-09 14:14:47 Outpatient R AVERYSHASHI [facility] [id number] [facility] 2022-10-09 12:45:00 2022-10-09 14:14:47 [facility]ine [facility] 1.0.114 350.1.13.10 4.2.7.2.686 [id number] [facility] 2022-10-09 00:00:00 2022-10-09 00:00:00 Orders Only Doctor Unassigned, Burr [facility] 1..114 350.1.13.10 4.2.7.2.686 [id number] [facility] 2022-09-27 13:15:00 2022-09-27 14:34:12 Outpatient R AVERYSHASHI [facility] [id number] [facility] 2022-09-27 13:15:00 2022-09-27 14:34:12 [facility] 1..114 350.1.13.10 4.2.7.2.686 [id number] [facility] 2022-09-27 00:00:00 2022-09-27 00:00:[address] Ambreen West [facility] 1.2.114 350.1.13.10 4.2.7.2.686 [id number] [facility] 2022-09-14 11:00:00 2022-09-14 11:00:00 Outpatient R [facility] [id number] [facility] 2022-09-10 15:45:00 2022-09-10 16:00:00 Routine Visit Ilan Wright [facility] L[employer] [facility] 1..840.114 350.1.13.10 4.2.7.2.686 [id number] [facility] 2022-09-10 15:45:00 2022-09-10 15:45:00 Outpatient ILAN SOLIS [facility] [id number] [facility] 2022-09-05 00:00:00 2022-09-05 00:00:00 Case Management Brooke Viramontes [facility] [employer] [facility] 1..840.114 350.1.13.10 4.2.7.2.686 [id number] [facility] 2022-09-04 13:00:00 2022-09-04 13:57:38 Outpatient P JOHN COWAN [facility] [id number] [facility] 2022-09-04 13:00:00 2022-09-04 13:57:38 Stock Shaper Visit Ultrasound, Ang-MfJohn Candelaria Ikuvbogie [facility] 1..840.114 350.1.13.10 4.2.7.2.686 [id number] [facility] 2022-08-14 13:15:00 2022-08-14 14:30:20 Outpatient R [facility] [id number] [facility] 2022-08-14 13:15:00 2022-08-14 14:30:20 Routine Visit Brooke Viramontes [facility] [employer] [facility] 1.0.114 350.1.13.10 4.2.7.2.686 [id number] [facility] 2022-07-20 10:30:00 2022-07-20 10:30:00 Outpatient [facility] [id number] [facility] 2022-07-20 10:30:00 2022-07-20 10:30:00 Stock Shaper Visit Lab, Ang-Rmchp [facility] [facility] 1.0.114 350.1.13.10 4.2.7.2.686 [id number] [facility] 2022-07-17 13:45:00 2022-07-17 14:45:20 Outpatient R [facility] [id number] [facility] 2022-07-17 13:45:00 2022-07-17 14:45:20 Initial Visit Brooke Viramontes [facility] [employer] [facility] 1.0.114 350.1.13.10 4.2.7.2.686 [id number] [facility] 2022-07-17 00:00:00 2022-07-17 00:00:00 Orders Only Doctor Unassigned, Burr [facility] 1.0.114 350.1.13.10 4.2.7.2.686 [id number] [facility] 2021-07-07 08:51:00 2021-07-07 23:59:00 Hospital Encounter Brad Parson [facility] 1.840.114 350.1.13.10 4.2.7.2.686 [id number] [facility] 2021-07-07 00:00:00 2021-07-07 23:59:00 Outpatient R BRAD PARSON [facility] ACO [id number] [facility] 2021-05-19 10:30:00 2021-05-19 10:45:00 Office Visit Rangel Parvin [facility] LENS [employer] [facility] 1.2.840.114 350.1.13.10 4.2.7.2.686 [id number] [facility] 2021-05-19 10:30:00 2021-05-19 10:30:00 [facility] [id number] [facility] 2021-04-12 09:15:00 2021-04-12 10:09:23 Outpatient R DUENASPARVIN [facility] [id number] [facility] 2021-04-12 09:15:00 2021-04-12 10:09:23 Routine Visit Rangel Parvin [facility] [employer] [facility] 1..840.114 350.1.13.10 4.2.7.2.686 [id number] [facility] 2021-03-23 15:30:00 2021-03-23 15:30:00 Outpatient R DUENASPARVIN [facility] [id number] [facility] 2021-03-21 19:42:00 2021-03-23 14:43:00 Inpatient CHIP SHANKAR [facility] ARI [id number] [facility] 2021-03-21 19:42:00 2021-03-23 14:43:00 Hospital Encounter Abril Contreras Hassan [facility] 1..840.114 350.1.13.10 4.2.7.2.686 [id number] [facility] 2021-03-23 00:00:00 2021-03-23 00:00:00 Encounter 1.2.840.1 [id number] [id number] 1.2.840.114 350.1.13.10 4.2.7.2.696 [id number] [facility] 2021-03-22 06:53:06 2021-03-22 06:53:06 Anesthesia Event Amaury Crump [facility] 1.2.840.114 350.1.13.10 4.2.7.2.686 [id number] [facility] 2021-03-16 13:30:00 2021-03-16 14:24:36 Outpatient R PARVIN DUENAS [facility] [id number] [facility] 2021-03-16 13:30:00 2021-03-16 14:24:36 Routine Visit Parvin Duenas [facility] L[employer] [facility] 1.2.840.114 350.1.13.10 4.2.7.2.686 [id number] [facility] 2021-03-16 13:30:00 2021-03-16 13:30:00 Outpatient R PARVIN DUENAS [facility] [id number] [facility] 2021-03-14 00:00:00 2021-03-14 00:00:00 Telephone Parvin Duenas [facility] [employer] [facility] 1.2.840.114 350.1.13.10 4.2.7.2.686 [id number] [facility] 2021-03-09 13:00:00 2021-03-09 13:00:56 Stock Shaper Visit Lab, [facility] Parvin Duenas [facility] [employer] [facility] 1.2.840.114 350.1.13.10 4.2.7.2.686 [id number] [facility] 2021-03-09 13:00:00 2021-03-09 13:00:00 Outpatient PARVIN RODRÍGUEZ [facility] [id number] [facility] 2021-03-07 00:00:00 2021-03-07 00:00:00 Telephone Parvin Duenas [facility] L[employer] [facility] 1.2.840.114 350.1.13.10 4.2.7.2.686 [id number] [facility] 2021-03-06 12:45:00 2021-03-06 13:00:00 Routine Visit Parvin Duenas [facility] L[employer] [facility] 1.2.840.114 350.1.13.10 4.2.7.2.686 [id number] [facility] 2021-03-06 12:45:00 2021-03-06 12:45:00 Outpatient PARVIN RODRÍGUEZ [facility] [id number] [facility] 2021-02-27 13:15:00 2021-02-27 14:07:24 Outpatient PARVIN RODRÍGUEZ [facility] [id number] [facility] 2021-02-27 13:15:00 2021-02-27 14:07:24 Routine Visit Parvin Duenas [facility] L[employer] [facility] 1.2.840.114 350.1.13.10 4.2.7.2.686 [id number] [facility] 2021-02-27 13:15:00 2021-02-27 14:07:24 Outpatient PARVIN RODRÍGUEZ [facility] [id number] [facility] 2021-02-16 12:45:00 2021-02-16 12:45:00 [facility] [id number] [facility] 2021-02-06 14:15:00 2021-02-06 15:00:00 Outpatient R STEVE GRADY [facility] [id number] [facility] 2021-02-06 14:18:22 2021-02-06 14:33:22 Routine Visit Steve Grady [facility] L[employer] [facility] 1.2.840.114 350.1.13.10 4.2.7.2.686 [id number] [facility] 2021-01-23 16:08:21 2021-01-23 16:35:18 Routine Visit Steve Grady [facility] L[employer] [facility] 1..840.114 350.1.13.10 4.2.7.2.686 [id number] [facility] 2021-01-23 16:00:00 2021-01-23 16:35:18 Outpatient R STEVE GRADY [facility] [id number] [facility] 2021-01-05 13:49:09 2021-01-05 14:23:41 Routine Visit Steve Grady Mellerie O [facility] [employer] [facility] [id number] [id number] [facility] 2021-01-05 13:45:00 2021-01-05 14:23:41 Outpatient R [facility]EV[facility] GR[facility] [id number] [facility] 2020-12-16 00:00:00 2020-12-16 00:00:00 Telephone Ajith Ellis [facility] [employer] [facility] [id number] [facility] [facility] 2020-12-15 13:07:03 2020-12-15 14:12:05 Routine Visit Provider, Ajith Peoples [facility] [employer] [facility] [id number] [id number] [id number] [facility] 2020-12-15 12:45:00 2020-12-15 12:45:00 Outpatient R [facility] [id number] [facility] 2020-11-28 13:27:42 2020-11-28 13:56:35 [facility] [employer] [employer] [facility] [id number] [id number] [id number] [facility] 2020-11-28 13:15:00 2020-11-28 13:15:00 Outpatient R [facility] [id number] [facility] 2020-11-16 14:21:27 2020-11-16 15:21:27 Stock Shaper Visit Ultrasound, John Sigala [facility] LENS [employer] [facility] [id number] [id number] [id number] [facility] 2020-11-16 14:15:00 2020-11-16 14:15:00 Outpatient P [facility] [id number] [facility] 2020-10-12 13:30:00 2020-10-12 13:30:00 Outpatient PARVIN RODRÍGUEZ [facility] [id number] [facility] 2020-10-05 13:15:00 2020-10-05 13:15:00 Outpatient PARVIN RODRÍGUEZ [facility] [id number] [facility] 2020-09-20 00:00:00 2020-09-20 00:00:00 Outpatient R LORRIE LUJAN [facility] [id number] [facility] 2020-09-14 14:30:00 2020-09-14 14:30:00 Outpatient P [facility] [id number] [facility] 2020-09-12 15:15:00 2020-09-12 15:15:00 Outpatient R [facility] [id number] [facility] 2020-09-07 13:31:13 2020-09-07 15:06:31 Initial Visit Risk, Ang-Rmchp-N p/High Ilan Wright Karen L [facility] LENS [employer] [facility] [id number] [id number] [id number] [id number] [facility] 2020-09-07 13:30:00 2020-09-07 13:30:00 Outpatient R ILAN WRIGHT [facility] [id number] [facility] 2020-09-07 13:30:00 2020-09-07 13:30:00 Outpatient ILAN SOLIS [facility] [id number] [facility] 2017-11-12 00:16:00 2017-11-12 00:16:00 [facility] [id number] [facility] 2017-11-06 14:00:00 2017-11-06 14:00:00 [facility]patient [facility] [id number] [facility] 2017-11-06 11:09:00 2017-11-06 11:09:00 Outpatient [facility] [id number] [facility] 2017-08-15 13:30:00 2017-08-15 13:30:00 [facility]patient [facility] [id number] [facility] Results Test Description Test Time Test Comments Results Result Co mments Source [facility] Packed RBC (in units), 1 Units 2023-01-15 14:14:08* Test Item Value Reference Range Interpretation Comme nts Cross Match Result (test code = 4409) Compatible ISBT Blood Type Code (test code = 449113) 7300 Unit Blood Type (test code = 4410) B Pos Unit Number (test code = 4411) [id number] Blood Expiration Date & Time (test code = 484231) [id number] Status Information (test code = 4412) Issued Product Identification (test code = 4413) Red Blood Cells Product Code (test code = 4414) [id number] Performed at [facility] Laboratory Services [facility] Blood [address] Free: [phone] No. [id number] [facility] (D) IMMUNE [id number] 22:25:56* Test Item Value Reference Range Interpretation Comme nts RHIG CANDIDATE? (test code = 5188) No- see comment Patient is not a candidate for RhIg- Patient is Rh Positive.Performed at [facility] Laboratory Services [facility] Blood [address] Free: [phone] No. [id number] [facility] (D) IMMUNE [id number] 22:25:56* Test Item Value Reference Range Interpretation Comme nts RHIG CANDIDATE? (test code = 5188) No- see comment Patient is not a candidate for RhIg- Patient is Rh Positive.Performed at [facility] Laboratory Services [facility] Blood [address] Free: [phone] No. [id number] [facility] [id number] 20:00:54* Test Item Value Reference Range Interpretation Comme nts VENOUS BASE EXCESS, CORD (test code = 4005950239) -9.2 mEq/L VENOUS PH, CORD (test code = 4282112155) 7.24 7.25-7.45 L VENOUS PC02, CORD (test code = 1298353203) 42 See_Comment [Automated me ssage] The system which generated this result transmitted reference range: 27 - 49 mmHg. The reference range was not used to interpret this result as normal/abnormal. VENOUS PO2, CORD (test code = 7425987854) 17 See_Comment [Automated me ssage] The system which generated this result transmitted reference range: 17 - 41 mmHg. The reference range was not used to interpret this result as normal/abnormal. VENOUS BICARBONATE, CORD (test code = 7615029941) 18 See_Comment [Automa ramy message] The system which generated this result transmitted reference range: 12 - 29 mEq/L. The reference range was not used to interpret this result as normal/abnormal. Lab Interpretation (test code = 47641-0) Abnormal [facility] [id number] 20:00:54* Test Item Value Reference Range Interpretation Comme [facility] VENOUS BASE EXCESS, CORD (test code = 7117571341) -9.2 mEq/L VENOUS PH, CORD (test code = 6605215901) 7.24 7.25-7.45 L VENOUS PC02, CORD (test code = 7786576852) 42 See_Comment [Automated me ssage] The system which generated this result transmitted reference range: 27 - 49 mmHg. The reference range was not used to interpret this result as normal/abnormal. VENOUS PO2, CORD (test code = 2231415317) 17 See_Comment [Automated me ssage] The system which generated this result transmitted reference range: 17 - 41 mmHg. The reference range was not used to interpret this result as normal/abnormal. VENOUS BICARBONATE, CORD (test code = 5782758953) 18 See_Comment [Automa ramy message] The system which generated this result transmitted reference range: 12 - 29 mEq/L. The reference range was not used to interpret this result as normal/abnormal. Lab Interpretation (test code = 13386-4) Abnormal [facility] SYPHILIS [id number] 16:46:59* Test Item Value Reference Range Interpretation Comme [facility] Syphilis IgG/IgM (test code = 58369-7) Non-reactive Non-reactive CARMEN (test code = CARMEN) Non-reactive - No serologic evidence of T. pallidum infection. Cannot exclude incubating or early syphilis. Submit a second specimen in 2-4 weeks if syphilis is clinically suspected. Equivocal - Further testing to follow. Reactive - Further testing to follow. Lab Interpretation (test code = 29747-3) Normal [facility] SYPHILIS IGG/[id number] 16:46:59* Test Item Value Reference Range Interpretation Comme nts Syphilis IgG/IgM (test code = 40304-2) Non-reactive Non-reactive CARMEN (test code = CARMEN) Non-reactive - No serologic evidence of T. pallidum infection. Cannot exclude incubating or early syphilis. Submit a second specimen in 2-4 weeks if syphilis is clinically suspected. Equivocal - Further testing to follow. Reactive - Further testing to follow. Lab Interpretation (test code = 37024-5) Normal [facility] HospitalLamiate Srkugilovyirq1108-63-13 14:30:50* Test Item Value Reference Range Interpretation Comme nts LDH (test code = 0284031000) 305 U/L 120-246 H Lab Interpretation (test cod e = 27152-9) Abnormal [facility] HospitalLactate Gpbwktqqnhjxe5543-19-35 14:30:50* Test Item Value Reference Range Interpretation Comme nts LDH (test code = 7197799575) 305 U/L 120-246 H Lab Interpretation (test cod e = 92486-2) Abnormal [facility] Wyvtltqtnr2505-84-75 13:03:48* Test Item Value Reference Range Interpretation Comme [facility] CREATININE (test code = 8780072959) 0.46 mg/dL 0.50-1.04 L eGFR (test code = 49865-2) 139.8 mL/min/1.73m2 CKD-EPI eGFR (2020). Assuming creatinine has been stable day-to-day for at least three months, the eGFR indicates Category G1 (>= 90 mL/min/1.73 m2) Lab Interpretation (test code = 68089-3) Abnormal [facility] Hospital[facility] (Asparate Amino Transfer)2023-01-14 13:03:48* Test Item Value Reference Range Interpretation Comme [facility] AST(SGOT) (test code = 3166963771) 24 U/L 13-40 Lab Interpretation (test cod e = 15334-5) Normal [facility] HospitalAlanine Amino Transferase (SGPT)2023-01-14 13:03:48* Test Item Value Reference Range Interpretation Comme nts ALTv (test code = 1742-6) 20 U/L 5-35 Lab Interpretation (test cod e = 90252-7) [facility] Jwzphilxuc0044-73-11 13:03:48* Test Item Value Reference Range Interpretation Comme nts CREATININE (test code = 7803058408) 0.46 mg/dL 0.50-1.04 L eGFR (test code = 89735-2) 139.8 mL/min/1.73m2 CKD-EPI eGFR (2020). Assuming creatinine has been stable day-to-day for at least three months, the eGFR indicates Category G1 (>= 90 mL/min/1.73 m2) Lab Interpretation (test code = 56116-4) Abnormal [facility] (Asparate Amino Transfer)2023-01-14 13:03:48* Test Item Value Reference Range Interpretation Comme [facility] AST(SGOT) (test code = 9595501840) 24 U/L 13-40 Lab Interpretation (test cod e = 64475-6) Normal [facility] Hospital[facility] Amino Transferase (SGPT)2023-01-14 13:03:48* Test Item Value Reference Range Interpretation Comme nts ALTv (test code = 1742-6) 20 U/L 5-35 Lab Interpretation (test cod e = 34013-4) Normal [facility] HospitalU[facility] Acid Sgvcv1953-79-43 13:03:47* Test Item Value Reference Range Interpretation Comme nts URIC ACID (test code = 0422751078) 5.8 mg/dL 2.9-6.0 Lab Interpretation (test cod e = 00174-3) Normal [facility] HospitalU[facility] Acid Klpqd1048-58-87 13:03:47* Test Item Value Reference Range Interpretation Comme nts URIC ACID (test code = 6195615919) 5.8 mg/dL 2.9-6.0 Lab Interpretation (test cod e = 11751-7) Normal [facility] HospitalCBC with Jpkfynraxvsn3794-07-69 12:42:44* Test Item Value Reference Range Interpretation Comme nts WBC (test code = 6690-2) 8.43 See_Comment [Automated messa ge] The system which generated this result transmitted reference range: 4.30 - 11.10 10*3/?L. The reference range was not used to interpret this result as normal/abnormal. RBC (test code = 789-8) 4.39 See_Comment [Automated messa ge] The system which generated this result transmitted reference range: 3.93 - 5.25 10*6/?L. The reference range was not used to interpret this result as normal/abnormal. HGB (test code = 718-7) 10.2 g/dL 11.6-15.0 L HCT (test code = 4544-3) 32.9 % 35.7-45.2 L MCV (test code = 787-2) 74.9 fL 80.6-95.5 L MCH (test code = 785-6) 23.2 pg 25.9-32.8 L MCHC (test code = 786-4) 31.0 g/dL 31.6-35.1 L RDW-SD (test code = 27211-1) 40.2 fL 39.0-49.9 RDW-CV (test code = 788-0) 14.8 % 12.0-15.5 PLT (test code = 777-3) 306 See_Comment [Automated [employer] ge] The system which generated this result transmitted reference range: 166 - 358 10*3/?L. The reference range was not used to interpret this result as normal/abnormal. MPV (test code = 11129-4) 11.0 fL 9.5-12.9 NRBC/100 WBC (test code = 7345598085) 0.0 See_Comment [Automated [employer] ssage] The system which generated this result transmitted reference range: 0.0 - 10.0 /100 WBCs. The reference range was not used to interpret this result as normal/abnormal. NRBC x10^3 (test code = 9058068180) See_Comment [Automated [employer] ge] The system which generated this result transmitted reference range: 10*3/?L. The reference range was not used to interpret this result as normal/abnormal. GRAN MAT (NEUT) % (test code = 770-8) 66.5 % IMM GRAN % (test code = 8084438566) 0.50 % LYMPH % (test code = 736-9) 24.0 % MONO % (test code = 5905-5) 7.4 % EOS % (test code = 713-8) 0.7 % BASO % (test code = 706-2) 0.9 % GRAN MAT x10^3(ANC) (test code = 5597908164) 5.61 10*3/uL 1.88-7.09 IMM GRAN x10^3 (test code = 9531776783) 0.04 10*3/uL 0.00-0.06 LYMPH x10^3 (test code = 731-0) 2.02 10*3/uL 1.32-3.29 MONO x10^3 (test code = 742-7) 0.62 10*3/uL 0.33-0.92 EOS x10^3 (test code = 711-2) 0.06 10*3/uL 0.03-0.39 BASO x10^3 (test code = 704-7) 0.08 10*3/uL 0.01-0.07 H Lab Interpretation (test code = 35827-8) Abnormal [facility] with Wntdinmrptgo4845-54-67 12:42:44* Test Item Value Reference Range Interpretation Comme nts WBC (test code = 6690-2) 8.43 See_Comment [Automated [employer]] The system which generated this result transmitted reference range: 4.30 - 11.10 10*3/?L. The reference range was not used to interpret this result as normal/abnormal. RBC (test code = 789-8) 4.39 See_Comment [Automated [employer]] The system which generated this result transmitted reference range: 3.93 - 5.25 10*6/?L. The reference range was not used to interpret this result as normal/abnormal. HGB (test code = 718-7) 10.2 g/dL 11.6-15.0 L HCT (test code = 4544-3) 32.9 % 35.7-45.2 L MCV (test code = 787-2) 74.9 fL 80.6-95.5 L MCH (test code = 785-6) 23.2 pg 25.9-32.8 L MCHC (test code = 786-4) 31.0 g/dL 31.6-35.1 L RDW-SD (test code = 93613-2) 40.2 fL 39.0-49.9 RDW-CV (test code = 788-0) 14.8 % 12.0-15.5 PLT (test code = 777-3) 306 See_Comment [Automated messa ge] The system which generated this result transmitted reference range: 166 - 358 10*3/?L. The reference range was not used to interpret this result as normal/abnormal. MPV (test code = 15740-8) 11.0 fL 9.5-12.9 NRBC/100 WBC (test code = 1201136632) 0.0 See_Comment [Automated me ssage] The system which generated this result transmitted reference range: 0.0 - 10.0 /100 WBCs. The reference range was not used to interpret this result as normal/abnormal. NRBC x10^3 (test code = 8328760045) See_Comment [Automated messa ge] The system which generated this result transmitted reference range: 10*3/?L. The reference range was not used to interpret this result as normal/abnormal. GRAN MAT (NEUT) % (test code = 770-8) 66.5 % IMM GRAN % (test code = 4337953022) 0.50 % LYMPH % (test code = 736-9) 24.0 % MONO % (test code = 5905-5) 7.4 % EOS % (test code = 713-8) 0.7 % BASO % (test code = 706-2) 0.9 % GRAN MAT x10^3(ANC) (test code = 0089980264) 5.61 10*3/uL 1.88-7.09 IMM GRAN x10^3 (test code = 3521621564) 0.04 10*3/uL 0.00-0.06 LYMPH x10^3 (test code = 731-0) 2.02 10*3/uL 1.32-3.29 MONO x10^3 (test code = 742-7) 0.62 10*3/uL 0.33-0.92 EOS x10^3 (test code = 711-2) 0.06 10*3/uL 0.03-0.39 BASO x10^3 (test code = 704-7) 0.08 10*3/uL 0.01-0.07 H Lab Interpretation (test code = 34168-2) Abnormal [facility] 1/2 AG-AB WITH [id number] 09:21:08* Test Item Value Reference Range Interpretation Comme nts HIV Semi-quantitative (test code = 23341-0) 0.09 Negative CARMEN (test code = CARMEN) Non-reactive for HIV-1 antigen and HIV-1/HIV-2 antibodies. ?No laboratory evidence of HIV infection. ?Repeat in 2-4 weeks if acute HIV infection is suspected. [facility] 1/2 AG-AB WITH [id number] 09:21:08* Test Item Value Reference Range Interpretation Comme nts HIV Semi-quantitative (test code = 46885-8) 0.09 Negative CARMEN (test code = CAMREN) Non-reactive for HIV-1 antigen and HIV-1/HIV-2 antibodies. ?No laboratory evidence of HIV infection. ?Repeat in 2-4 weeks if acute HIV infection is suspected. [facility] B Surface Zvafbrg3029-41-63 06:37:00 * Test Item Value Reference Range Interpretation Comme nts HBsAg Semi-Quantitative (carolina t code = 5195-3) 0.07 Negative [facility] B Surface Ibfqaco6147-97-61 06:37:00 * Test Item Value Reference Range Interpretation Comme nts HBsAg Semi-Quantitative (carolina t code = 5195-3) 0.07 Negative [facility] - [facility] [id number] 05:40:00 * Test Item Value Reference Range Interpretation Comme nts ABO & RH (test code = 20) B POSITIVE IAT (test code = 1185) Negative [facility] - [facility]CE [id number] 05:40:00 * Test Item Value Reference Range Interpretation Comme nts ABO & RH (test code = 20) B POSITIVE IAT (test code = 1185) Negative [facility] URINALYSIS W SPECIFIC [id number] 16:19:00* Test Item Value Reference Range Interpretation Comme nts POCT U SP GRAV (test code = 3255) . 1.005-1.025 POCT PH U (test code = 3254) 6 mg/dl 5-8 POCT U LEUK EST (test code = 3263) 2+ Negative - Negative POCT U NIT (test code = 3262) Neg Negative - Negati ve POCT U PROT (test code = 3259) 1+ Negative - Negat florecita POCT U GLU (test code = 3256) Nml Negative - Negati ve POCT U KETONE (test code = 3258) None Negative - Neg ative POCT U UROBILI (test code = 3260) . 0.2-1 POCT U BILI (test code = 3261) . Negative - Negat florecita POCT U BLD (test code = 3257) Trace Negative - Negati ve POCT U COLOR (test code = 3266) . POCT U APPEAR (test code = 3267) . [facility] URINALYSIS W SPECIFIC [id number] 19:22:00* Test Item Value Reference Range Interpretation Comme nts POCT U SP GRAV (test code = 3255) . 1.005-1.025 POCT PH U (test code = 3254) 7 mg/dl 5-8 POCT U LEUK EST (test code = 3263) trace Negative - Negative POCT U NIT (test code = 3262) negative Negative - Negati ve POCT U PROT (test code = 3259) trace Negative - Negat florecita POCT U GLU (test code = 3256) 100 Negative - Negati ve POCT U KETONE (test code = 3258) negative Negative - Neg ative POCT U UROBILI (test code = 3260) . 0.2-1 POCT U BILI (test code = 3261) . Negative - Negat florecita POCT U BLD (test code = 3257) negative Negative - Negati ve POCT U COLOR (test code = 3266) . POCT U APPEAR (test code = 3267) . [facility] URINALYSIS W SPECIFIC [id number] 19:22:00* Test Item Value Reference Range Interpretation Comme nts POCT U SP GRAV (test code = 3255) . 1.005-1.025 POCT PH U (test code = 3254) 7 mg/dl 5-8 POCT U LEUK EST (test code = 3263) trace Negative - Negative POCT U NIT (test code = 3262) negative Negative - Negati ve POCT U PROT (test code = 3259) trace Negative - Negat florecita POCT U GLU (test code = 3256) 100 Negative - Negati ve POCT U KETONE (test code = 3258) negative Negative - Neg ative POCT U UROBILI (test code = 3260) . 0.2-1 POCT U BILI (test code = 3261) . Negative - Negat florecita POCT U BLD (test code = 3257) negative Negative - Negati ve POCT U COLOR (test code = 3266) . POCT U APPEAR (test code = 3267) . [facility] URINALYSIS W SPECIFIC [id number] 19:36:00* Test Item Value Reference Range Interpretation Comme nts POCT U SP GRAV (test code = 3255) . 1.005-1.025 POCT PH U (test code = 3254) 7 mg/dl 5-8 POCT U LEUK EST (test code = 3263) 2+ Negative - Negative POCT U NIT (test code = 3262) neg Negative - Negati ve POCT U PROT (test code = 3259) trace Negative - Negat florecita POCT U GLU (test code = 3256) neg Negative - Negati ve POCT U KETONE (test code = 3258) neg Negative - Neg ative POCT U UROBILI (test code = 3260) . 0.2-1 POCT U BILI (test code = 3261) . Negative - Negat florecita POCT U BLD (test code = 3257) neg Negative - Negati ve POCT U COLOR (test code = 3266) . POCT U APPEAR (test code = 3267) . [facility] URINALYSIS W SPECIFIC [id number] 21:03:00* Test Item Value Reference Range Interpretation Comme nts POCT U SP GRAV (test code = 3255) . 1.005-1.025 POCT PH U (test code = 3254) . 5-8 POCT U LEUK EST (test code = 3263) . Negative - N egative POCT U NIT (test code = 3262) . Negative - Negati ve POCT U PROT (test code = 3259) trace Negative - Negat florecita POCT U GLU (test code = 3256) neg Negative - Negati ve POCT U KETONE (test code = 3258) . Negative - Neg ative POCT U UROBILI (test code = 3260) . 0.2-1 POCT U BILI (test code = 3261) . Negative - Negat florecita POCT U BLD (test code = 3257) . Negative - Negati ve POCT U COLOR (test code = 3266) . POCT U APPEAR (test code = 3267) . [facility] [id number] 18:20:33* Test Item Value Reference Range Interpretation Comments RACE (test code = 3338141736) WEIGHT (test code = 9111748535) 150 lbs GEST. AGE (test code = 8276140310) 18,6 INS. DEP (test code = 7397815615) No LMP (test code = 0246586631) [id number] US DATE (test code = 0592601315) PE DATE (test code = 5459444556) METHOD (test code = 1225759961) LMP MULT GEST (test code = 8495303447) No NTD HX (test code = 4656171876) No INITAL OR REPEAT (test code = 6112901919) Initial Testing SMOKER (test code = 0951813098) No RH (test code = 2977132068) Positive INHIBIN (test code = 2842235551) 294.7 pg/mL AFP-MS (test code = 7702578509) 55.8 ng/mL ESTRIOL (test code = 4534585226) 1.60 ng/mL BHCG DOWNS (test code = 7017299045) 38179.0 mIU/mL AFP-MS MoM (test code = 5148425494) 1.35 BHCG MoM (test code = 9925509788) 0.93 INHIBIN MoM (test code = 0693938029) 2.05 E3 MoM (test code = 3803959975) 1.10 EQ AGE RSK (test code = 6523325107) < 15.0 less than desi t of a 15.0 year old DS APR (test code = 7719372148) 1:1160 DS INTERP (test code = 1204717549) See Note The risk of D own syndrome is LESS than the screening cut-off. Nofollow-up is indicated regarding this result. DS RSK (test code = 6777434569) 1:2910 The risk at mid-trimester is equal to 1:2910 DS SCRN (test code = 2956005616) Negative TRISOMY 18 (test code = 5730826708) See Note These serum m arker levels are not consistent with the pattern seen inTrisomy 18 pregnancies. Maternal serum screening will detectapproximately 60% of Trisomy 18 pregnancies. ES RSK (test code = 8120963330) 1:28629 The risk of Abel kosta 18 is equal to 1:77805Kes Trisomy 18 cut-off is 1:45 ES SCRN (test code = 6807676533) Negative OSB INTERP (test code = 4765006668) See Note The maternal serum AFP result is NOT elevated for a of thisgestational age. The risk of an open neural tube defect is less thanthe screening cut-off. OSB RSK (test code = 3276156121) 1:3990 The risk of OSB is equal to 1:3990The OSB cut-off is 2.59 (1:104) OSB SCRN (test code = 0039501477) Negative INTERPRETATION (test code = 4077955504) N INTERPRETATION: SCREEN NEGATIVE [facility] URINALYSIS W SPECIFIC [id number] 18:44:00* Test Item Value Reference Range Interpretation Comme nts POCT U SP GRAV (test code = 3255) . 1.005-1.025 POCT PH U (test code = 3254) 7 mg/dl 5-8 POCT U LEUK EST (test code = 3263) 2+ Negative - Negative POCT U NIT (test code = 3262) Neg Negative - Negati ve POCT U PROT (test code = 3259) Trace Negative - Negat florecita POCT U GLU (test code = 3256) Neg Negative - Negati ve POCT U KETONE (test code = 3258) None Negative - Neg ative POCT U UROBILI (test code = 3260) . 0.2-1 POCT U BILI (test code = 3261) . Negative - Negat florecita POCT U BLD (test code = 3257) Trace Negative - Negati ve POCT U COLOR (test code = 3266) . POCT U APPEAR (test code = 3267) . [facility] WITH [id number] 12:09:06* Test Item Value Reference Range Interpretation Comme nts HIV Semi-quantitative (test code = 26796-6) 0.08 Negative CARMEN (test code = CARMEN) Non-reactive for HIV-1 antigen and HIV-1/HIV-2 antibodies. ?No laboratory evidence of HIV infection. ?Repeat in 2-4 weeks if acute HIV infection is suspected. [facility] SURFACE [id number] 09:53:50 * Test Item Value Reference Range Interpretation Comme nts HBsAg Semi-Quantitative (carolina t code = 5195-3) 0.06 Negative [facility]COMP. METABOLIC PANEL (56663)2022-07-18 08:08:03* Test Item Value Reference Range Interpretation Comme nts NA (test code = 0063141973) 136 mmol/L 135-145 K (test code = 1526908290) 4.3 mmol/L 3.5-5.0 CL (test code = 6832042313) 101 mmol/L 98-108 CO2 TOTAL (test code = 8584217510) 23 mmol/L 23-31 AGAP (test code = 8591413428) 12 2-16 BUN (test code = 3786472990) 6 mg/dL 7-23 L GLUCOSE (test code = 7986296234) 105 mg/dL 70-110 CREATININE (test code = 0573758863) 0.42 mg/dL 0.50-1.04 L TOTAL BILI (test code = 8770872433) 0.4 mg/dL 0.1-1.1 CALCIUM (test code = 4148564390) 9.4 mg/dL 8.6-10.6 T PROTEIN (test code = 2496199211) 7.9 g/dL 6.3-8.2 ALBUMIN (test code = 6040947206) 4.3 g/dL 3.5-5.0 ALK PHOS (test code = 2698533907) 44 U/L 34-122 ALTv (test code = 1742-6) 12 U/L 5-35 AST(SGOT) (test code = 3702814959) 19 U/L 13-40 eGFR (test code = 0650915639) 190.5 mL/min/1.73m2 CARMEN (test code = CARMEN) Association of Glomerular Filtration Rate (GFR) and Staging of Kidney Disease* + --+ --+ ------+| GFR (mL/min/1.73 m2) ?| With Kidney Damage ?| ?Without Kidney Damage+ --------+ --------+ +| ?>90 ?| ?Stage one ?| ? Normal ?+ ---+ ---+ -------+| ?60-89 ?| ?Stage two ?| ? Decreased GFR ? + --+ --+ ------+| ?30-59 ?| ?Stage three ?| ? Stage three ? + --+ --+ ------+| ?15-29 ?| ?Stage four ? | ? Stage four ?+ ---+ ---+ -------+| ?<15 (or dialysis) ? ?| ?Stage five ? | ? Stage five ?+ ---+ ---+ -------+ *Each stage assumes the associated GFR level has been in effect for at least three months. ?Stages 1 to 5, with or without kidney disease, indicate chronic kidney disease. Notes: Determination of stages one and two (with eGFR >59mL/min/1.73 m2) requires estimation of kidney damage for at least three months as defined by structural or functional abnormalities of the kidney, manifested by either:Pathological abnormalities or Markers of kidney damage (including abnormalities in the composition of the blood or urine or abnormalities in imaging tests). Lab Interpretation (test code = 27886-7) [facility] Rhrkcrpd1689-85-31 06:50:53* Test Item Value Reference Range Interpretation Comme nts GLUC 1 HR (test code = 9582819371) 103 mg/dL 120-170 L Lab Interpretation (test cod e = 67411-3) [facility] WITH UWYU9187-87-58 06:15:49* Test Item Value Reference Range Interpretation Comme nts WBC (test code = 6690-2) 6.19 See_Comment [Automated [employer]] The system which generated this result transmitted reference range: 4.30 - 11.10 10*3/?L. The reference range was not used to interpret this result as normal/abnormal. RBC (test code = 789-8) 4.73 See_Comment [Automated messa ge] The system which generated this result transmitted reference range: 3.93 - 5.25 10*6/?L. The reference range was not used to interpret this result as normal/abnormal. HGB (test code = 718-7) 13.4 g/dL 11.6-15.0 HCT (test code = 4544-3) 38.9 % 35.7-45.2 MCV (test code = 787-2) 82.2 fL 80.6-95.5 MCH (test code = 785-6) 28.3 pg 25.9-32.8 MCHC (test code = 786-4) 34.4 g/dL 31.6-35.1 RDW-SD (test code = 71624-0) 39.9 fL 39.0-49.9 RDW-CV (test code = 788-0) 13.2 % 12.0-15.5 PLT (test code = 777-3) 331 See_Comment [Automated messa ge] The system which generated this result transmitted reference range: 166 - 358 10*3/?L. The reference range was not used to interpret this result as normal/abnormal. MPV (test code = 25104-2) 10.1 fL 9.5-12.9 NRBC/100 WBC (test code = 0951098763) 0.0 See_Comment [Automated [employer] ssage] The system which generated this result transmitted reference range: 0.0 - 10.0 /100 WBCs. The reference range was not used to interpret this result as normal/abnormal. NRBC x10^3 (test code = 4213015584) See_Comment [Automated messa ge] The system which generated this result transmitted reference range: 10*3/?L. The reference range was not used to interpret this result as normal/abnormal. GRAN MAT (NEUT) % (test code = 770-8) 68.3 % IMM GRAN % (test code = 4703345435) 0.20 % LYMPH % (test code = 736-9) 24.9 % MONO % (test code = 5905-5) 5.2 % EOS % (test code = 713-8) 0.8 % BASO % (test code = 706-2) 0.6 % GRAN MAT x10^3(ANC) (test code = 9546582771) 4.23 10*3/uL 1.88-7.09 IMM GRAN x10^3 (test code = 2443399783) 0.00-0.06 LYMPH x10^3 (test code = 731-0) 1.54 10*3/uL 1.32-3.29 MONO x10^3 (test code = 742-7) 0.32 10*3/uL 0.33-0.92 L EOS x10^3 (test code = 711-2) 0.05 10*3/uL 0.03-0.39 BASO x10^3 (test code = 704-7) 0.04 10*3/uL 0.01-0.07 Lab Interpretation (test code = 14086-6) [facility], BLOOD GLWM6465-74-84 05:41:00 * Test Item Value Reference Range Interpretation Comme nts ABO & RH (test code = 20) B POSITIVE IAT (test code = 1185) Negative [facility] URINALYSIS W/O SPECIFIC OOJWIWS3157-51-26 18:28:00* Test Item Value Reference Range Interpretation Comme nts POCT PH U (test code = 3254) 6 mg/dl 5-8 POCT U LEUK EST (test code = 3263) 2+ Negative - Negative POCT U NIT (test code = 3262) Neg Negative - Negati ve POCT U PROT (test code = 3259) Trace Negative - Negat florecita POCT U GLU (test code = 3256) Neg Negative - Negati ve POCT U KETONE (test code = 3258) None Negative - Neg ative POCT U BLD (test code = 3257) Trace Negative - Negati ve [facility] POQZ0681-01-60 18:27:00* Test Item Value Reference Range Interpretation Comme nts POCT PREG (test code = 1605) Positive On board controls acceptable with C Line (test code = 3574) Yes POCT PREG LOT # (test code = 3577) POCT PREG TEST DATE ( test code = 3576) [facility]2021-07-07 21:05:40* Test Item Value Reference Range Interpretation Comme nts POCT GLU (test code = 6960921392) 131 mg/dL 70-110 H Lab Interpretation (test cod e = 37697-6) Abnormal [facility] Notes Date/Time Note Provider Source 2022-10-10 13:50:38 wqwu/WHkxu9uxwvARAR+ 8hTlbzLW+uyn OkgX77+1/PqC9AtB1UnxHbgL542FtsWU 3535-71-35K05:50:38 Patient informed of results and new orders, verbalized understanding. 60050-0Vocdqbnzg encounter EvrrUC4615-10-00I07:51:05Telepho ne encounter NoteTXT1.2.840.714981.1.13.104.2 .7.2.747016|[id number] e for patient iqni73104-6QwapYB922066963Xwczai elliott Courtney [address] TvtkSixbxrrmkKbxwpvlpeKJCM097056 8335AMGJOLBDAIEALPCNBQQUSX5793-3 8-16T13:51:051.2.840.738909.1.72 .3.15|1.2.840.167637.1.13.104.2. 7.2.727879_[id number] Brittany Courtney [facility] 2022-10-10 13:31:11 n3PvufLenyeoza5cZVxl 8cDSIOB2bZcT HRBVMj1YS2Pv15Z/vFwBulp626rYUFgG 6497-02-46L54:31:11 Please call patient and let her know I erx integra plus iron supplement daily and increase iron rich foods 88965-3Rhbozhedo encounter TegmGB0550-36-09Z88:34:26Telepho ne encounter NoteTXT1.2.840.330586.1.13.104.2 .7.2.227799|[id number] e for patient fpuu68654-9HjmvUCZPOBLAFY[address]TXTX[address] 5310KVTDDYILEZMTGDRWNNLPRA8877-4 3:34:261.2.840.913882.1.72 .3.15|1.2.840.737241.1.13.104.2. 7.2.727879_[id number] [facility] 2022-09-27 12:30:00 NIw18xirtHXVSULU7hmq Nq5J/K+jED0i volyCp/0KiibeH7O9avxOZ3KZVH4Kouh 2068-78-57B33:30:00 Regardiny/f 25wks back pains; headache dizziness and stiff neck----- Message from Yanet Alexander sent at 09/27/2022 12:13 PM CDT -----Maureen Arreguin is a 22 year old female 18034-4Bvtouognb encounter VnyjDO1794-16-05X36:30:26Telepho ne encounter NoteTXT1.2.840.721474.1.13.104.2 .7.2.525399|[id number] e for patient cnyv25000-6YxghXF963265363Wewcld asad West RN[address]TX[address] 7935SSWIFSZAWREEIQJKEHBZGT7319-1 2:30:261.2.840.390595.1.72 .3.15|1.2.840.319310.1.13.104.2. 7.2.727879_[id number] Ambreen West RN [facility] 2022-09-27 12:30:00 W5imFpXzC2B8YmIuqE7I ydAT0EgMkxAT vMI0bNIFIOMP1GHmbtT8MHQN4YYbwTq7 7401-68-47V41:30:00 Triage AssessmentLast Clinic Visit: 09/10/2022 routine prenatalPrimary Symptom: back painOnset / Duration: 3 daysLocation / Description: right sidePain / Severity: back pain 7 out of 10, neck pain 8 out of 10Associated Symptoms: stiff neck, FONSECA, dizziness is off and onFever / Method: deniesHydration: 2 12 oz water bottles, last void 11am this morningTreatment so far: tylenol 1 extra strength /not effectiveEffect on ADL's: severeGestational Weeks: 24 weeks 1 dayRupture Membranes: deniesBleeding / Spotting / Pads per hour: deniesFetal Movement: moves a lot" last movement within the hourPara / : EDC: 01/16/2023re-existing condition / Immunocompromised: pre-eclampsiaReason for Disposition [1] SEVERE back pain (e.g., excruciating, unable to do any normal activities) AND [2] not improved 2 hours after pain medicineProtocols used: - Back Iwyl-XBVRQ-LBYxxws Note: after assessment, an appointment was made for pt to see provider within 4 hours per protocol. Pt will try to make appt by scheduled time. This RN instructed pt to go to ER if unable to make appointment. Pt verbalized understanding[place] [address]-9Spipbdtkq encounter XkkeAW7186-15-76W87:55:59Telepho ne encounter NoteTXT1.2.840.832526.1.13.104.2 .7.2.984039|[id number] e for patient clze11895-0WjsfHJMEIDUSPE[address] OvnaLvdhrndxlLtoofcidcODYH545[address] 3485YAHWOUZWMYQRULBTOHHWHY4020-7 8-03T12:55:591.2.840.967322.1.72 .3.15|1.2.840.756706.1.13.104.2. 7.2.727879_[id number] [facility]
--- NOTE | 2023-04-01 13:01 | ER ---
Nurse's Notes [facility] Name: Maureen Adames Age: 22 yrs Sex: Female : 2000 Arrival Date: 04/01/2023 Time: 12:18 Bed 6 Private MD: Diagnosis: Cutaneous abscess of right lower limb Presentation: 04/01 12:31 Chief complaint: Patient states: boil to the RLE, started off as a red bump then had a ko1 pus pocket, now its "really bad". Coronavirus screen: At this time, the client does not indicate any symptoms associated with coronavirus-19. Ebola Screen: No symptoms or risks identified at this time. Initial Sepsis Screen: Does the patient meet any 2 criteria? No. Patient's initial sepsis screen is negative. Does the patient have a suspected source of infection? No. Patient's initial sepsis screen is negative. Risk Assessment: Do you want to hurt yourself or someone else? Patient reports no desire to harm self or others. Onset of symptoms is unknown. 12:31 Method Of Arrival: Ambulatory ko1 12:31 Acuity: MABEL 3 ko1 Triage Assessment: 12:32 General: Appears in no apparent distress. uncomfortable, Behavior is calm, cooperative, ko1 appropriate for age. Pain: Complains of pain in right leg. Historical: - Allergies: 12:32 No Known Allergies; ko1 - Home Meds: 12:32 None [Active]; ko1 - PMHx: 12:32 Ovarian cyst; preclampsia; ko1 - PSHx: 12:32 section; ko1 - Immunization history:: Adult Immunizations up to date. - Social history:: Smoking status: Patient denies any tobacco usage or history of. Screenin:46 [facility] ED Fall Risk Assessment (Adult) Score/Fall Risk Level 0 - 2 = Low Risk. Abuse as6 screen: Denies threats or abuse. Denies injuries from another. Nutritional screening: No deficits noted. Tuberculosis screening: No symptoms or risk factors identified. Assessment: 12:44 General: Appears in no apparent distress. Behavior is calm, cooperative. Pain: as6 Complains of pain in right leg. Neuro: Level of Consciousness is awake, alert, obeys commands, Oriented to person, place, time, situation. Cardiovascular: Capillary refill < 3 seconds Patient's skin is warm and dry. Respiratory: Respiratory effort is even, unlabored, Respiratory pattern is regular, symmetrical. GI: No deficits noted. No signs and/or symptoms were reported involving the gastrointestinal system. : No deficits noted. No signs and/or symptoms were reported regarding the genitourinary system. EENT: No deficits noted. No signs and/or symptoms were reported regarding the EENT system. Derm: Abscess located on lateral aspect of right calf is dime sized, has purulent drainage, is hot to touch, is red, is raised. Musculoskeletal: No deficits noted. No signs and/or symptoms reported regarding the musculoskeletal system. Vital Signs: 12:31 BP 130 / 82; Pulse 99; Resp 16; Temp 98.4; Pulse Ox 99% on R/A; ko1 ED Course: 12:20 Patient arrived in ED. rg4 12:32 Triage completed. ko1 12:32 Arm band placed on left wrist. Patient placed in an exam room, on a stretcher, on pulse ko1 oximetry, Patient notified of wait time. 12:34 Zay Ames DO is Attending Physician. ms3 12:46 Bed in low position. Call light in reach. Side rails up X 1. as6 12:46 Provided Education on: wound care . as6 12:46 Patient did not have IV access during this emergency room visit. as6 12:58 Mal Leyva DO is Referral Physician. ms3 13:07 Assist provider with I \\T\\ D: of an abscess on right leg Set up I\\T\\D tray. Performed by as 6 Zay Ames DO Patient tolerated well. Administered Medications: No medications were administered Medication: 13:07 VIS not applicable for this client. as6 Outcome: 12:46 Discharged to home ambulatory, with family, as6 12:46 Condition: stable 13:00 Discharge ordered by MD. ms3 13:07 Discharge instructions given to patient, Instructed on discharge instructions, follow as6 up and referral plans. medication usage, wound care, Demonstrated understanding of instructions, follow-up care, medications, wound care, Prescriptions given X 1, 13:10 Patient left the ED. as6 Signatures: Annelise Courtney rg4 Zay Ames DO DO ms3 Jeffry Yanes RN RN as6 Taylor Villagomez RN RN ko1
--- NOTE | 2023-04-01 13:01 | EDPHYS ---
Physician Documentation [facility] Name: Maureen Adames Age: 22 yrs Sex: Female : 2000 Arrival Date: 04/01/2023 Time: 12:18 Bed 6 Private MD: ED Physician Zay Ames HPI: 04/01 12:53 This 22 yrs old Female presents to ER via Ambulatory with complaints of ms3 Abscess. 12:53 22-year-old female with past medical history of preeclampsia and ovarian cysts presents ms3 to the emergency department for abscess on her right leg x 2 days. Patient denies any alleviating or inciting factors. Patient states the discomfort in her right leg is a 4/10.. Historical: - Allergies: 12:32 No Known Allergies; ko1 - Home Meds: 12:32 None [Active]; ko1 - PMHx: 12:32 Ovarian cyst; preclampsia; ko1 - PSHx: 12:32 section; ko1 - Immunization history:: Adult Immunizations up to date. - Social history:: Smoking status: Patient denies any tobacco usage or history of. ROS: 12:53 Constitutional: Negative for fever, and chills. Cardiovascular: Negative for chest ms3 pain, and palpitations. Respiratory: Negative for shortness of breath, cough, wheezing, and pleuritic chest pain, Abdomen/GI: Negative for abdominal pain, nausea, vomiting, diarrhea, and constipation, 12:53 Skin: Positive for abscess, 12:53 All other systems are negative, Exam: 12:53 Constitutional: This is a well developed, well nourished patient who is awake, alert, ms3 and in no acute distress. Head/Face: Normocephalic, atraumatic. Chest/axilla: Normal chest wall appearance and motion. Nontender with no deformity. Cardiovascular: Regular rate and rhythm with a normal S1 and S2. No gallops, murmurs, or rubs. Normal PMI, no JVD. No pulse deficits. Respiratory: Lungs have equal breath sounds bilaterally, clear to auscultation and percussion. No rales, rhonchi or wheezes noted. No increased work of breathing, no retractions or nasal flaring. Abdomen/GI: Soft, non-tender, with normal bowel sounds. No distension or tympany. No guarding or rebound. No evidence of tenderness throughout. 12:53 Skin: 0.5 cm pustule on right lower leg with surrounding erythema. Vital Signs: 12:31 BP 130 / 82; Pulse 99; Resp 16; Temp 98.4; Pulse Ox 99% on R/A; ko1 Procedures: 12:53 I \T\ D: Incision and drainage was performed for an abscess of the right Lower leg ms3 Prepped with alcohol, Incised with 18-gauge needle. Drained small amount purulent fluid. Dressing: sterile 4x4 gauze, the patient tolerated the procedure well. MDM: 12:51 Patient medically screened. ms3 12:53 Differential diagnosis: abscess, cellulitis. Data reviewed: vital signs, nurses notes, ms3 and as a result, I will discharge patient. Care significantly affected by the following Social Determinants of Health: Poor access to healthcare and/or lack of insurance. Counseling: I had a detailed discussion with the patient and/or guardian regarding the historical points, exam findings, and any diagnostic results supporting the discharge/admit diagnosis, the need for outpatient follow up, to return to the emergency department if symptoms worsen or persist or if there are any questions or concerns that arise at home. Special discussion: I discussed with the patient/guardian in detail that at this point there is no indication for admission to the hospital. It is understood, however, that if the symptoms persist or worsen the patient needs to return immediately for re-evaluation. ED course: Abscess unroofed and drained. Patient to follow-up with primary care physician in 2 to 3 days. Patient understands and agrees with plan. All questions were answered. Return precautions discussed include worsening symptoms, or any other concerns.. Administered Medications: No medications were administered Disposition Summary: 04/01/23 13:00 Discharge Ordered Notes: Location: Home ms3 Condition: Stable ms3 Diagnosis - Cutaneous abscess of right lower limb ms3 Followup: ms3 - With: Mal Leyva DO - When: 2 - 3 days - Reason: Recheck today's complaints Discharge Instructions: - Discharge Summary Sheet ms3 - Skin Abscess ms3 - Incision and Drainage ms3 Forms: - Family Work Release ph - Medication Reconciliation Form ms3 - Thank You Letter ms3 - Antibiotic Education ms3 - Prescription Opioid Use ms3 - Patient Portal Instructions ms3 - Leadership Thank You Letter ms3 Prescriptions: - Cephalexin 500 mg Oral Capsule - take 1 capsule ORAL route every 6 hours for 10 days; 40 capsule; Refills: 0, ms3 Product Selection Permitted Signatures: Zay Ames DO DO ms3 Taylor Villagomez RN RN ko1 Corrections: (The following items were deleted from the chart) 17:14 12:53 This 22 yrs old Female presents to ER via Ambulatory with complaints of ms3 Abscess. ms3
[2023-04-01 23:36] VITALS: BP 130/82; TEMP 98.4; O2SAT 99
== END ==
LOC: ER 12:18
PROC: 0H9KXZZ Drainage of Right Lower Leg Skin, External Approach (ICD-10-PCS; principal; 2023-04-01)
DX: L02.415 Cutaneous abscess of right lower limb (principal)